=== PATIENT | female | born 1935 | race Caucasian/White ===

== ENCOUNTER 2018-07-17 15:43 | Inpatient (IN) | payer MEDICARE, OTHER ==
[~2018-07-17] VITALS: Ht 162.6 cm; Wt 72.1 kg
[2018-07-17 16:06] LABS: BASO # 0.1 x10^3/uL (0.0-0.2); BASO % 1 % (0-3); EOS # 0.1 x10^3/uL (0.0-0.7); EOS % 1 % (0-3); HEMATOCRIT 32.1 % (36.0-47.0); HEMOGLOBIN 11.1 g/dL (12.0-15.5); LYMPH # 1.2 x10^3/uL (1.0-4.8); LYMPH % 15 % (24-48); MEAN CORPUSCULAR HEMOGLOBIN 34 pg (25-35); MEAN CORPUSCULAR HGB CONC 35 g/dL (31-37); MEAN CORPUSCULAR VOLUME 99 fL (79-100); MONO # 0.5 x10^3/uL (0.0-1.1); MONO % 6 % (0-9); NEUT # 6.2 x10^3uL (1.8-7.7); NEUT % 77 % (31-73); PLATELET COUNT 165 x10^3/uL (140-400); RED BLOOD COUNT 3.26 x10^6/uL (3.50-5.40); RED CELL DISTRIBUTION WIDTH 13.7 % (11.5-14.5); WHITE BLOOD COUNT 8.1 x10^3/uL (4.0-11.0)
--- NOTE | 2018-07-17 16:06 | RAD ---
PORTABLE CHEST 1V History: Shortness of breath Comparison: None. Findings: AP view of the chest is submitted. There has been median sternotomy. There is left electronic cardiac device. There is no pneumothorax. Very small left pleural effusion is difficult to exclude as there is mild blunting of left costophrenic sulcus of uncertain chronicity. Cardiac silhouette is borderline in size. There is mild hazy airspace opacity of the left lateral lung base. Impression: 1. There is mild hazy airspace opacity left lateral lung base and mild blunting of the left costophrenic sulcus of uncertain chronicity, possible mild left base atelectasis or infiltrate, very small left pleural effusion not excluded. Electronically signed by: Toby Lo MD (07/17/2018 4:02 PM) [id number]
--- NOTE | 2018-07-17 16:09 | EKG ---
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
[2018-07-17 16:15] LABS: PROTHROMBIN TIME PATIENT 23.9 SEC (11.7-14.0)
[2018-07-17] MEDS ORDERED: IV NORMAL SALINE 500ML BAG 500 ML IV ONE ×2 (16:15→16:30)
[2018-07-17 16:24] LABS: CALCIUM 8.6 mg/dL (8.5-10.1); CREATININE 1.8 mg/dL (0.6-1.0); GFR 26.9
[2018-07-17 16:28] LABS: ALBUMIN 2.8 g/dL (3.4-5.0); ALBUMIN/GLOBULIN RATIO 0.7 (1.0-1.7); TOTAL BILIRUBIN 0.5 mg/dL (0.2-1.0); TOTAL PROTEIN 6.7 g/dL (6.4-8.2)
[2018-07-17 16:44] LABS: BILIRUBIN,URINE SMALL (NEG); CLARITY,URINE CLEAR; NITRITE,URINE NEGATIVE (NEG); PH,URINE 5.5; PROTEIN,URINE NEGATIVE (NEG-TRACE)
[2018-07-17] MEDS ORDERED: VANCOMYCIN 1.75 GM in IV NORMAL SALINE 500ML BAG 500 ML IV ONE (16:45)
[2018-07-17 17:08] LABS: COLOR,URINE DK YELLOW
[2018-07-17 17:13] LABS: BACTERIA,URINE FEW /HPF (0-FEW); HYALINE CASTS, URINE MANY /HPF; RBC,URINE 0 /HPF (0-2); SQUAMOUS EPITHELIAL CELL,UR MANY /LPF
[2018-07-17] MEDS ORDERED: FURO40TA4 PO (17:30)
[2018-07-17] MEDS ORDERED: POTA10TA17 PO (17:30)
[2018-07-17] MEDS ORDERED: AMIO200T4 PO (17:30)
[2018-07-17] MEDS ORDERED: CETI10TA16 PO (17:30)
[2018-07-17] MEDS ORDERED: VENL37.57 PO (17:30)
[2018-07-17] MEDS ORDERED: CRESTOR20 MG PO (17:30)
[2018-07-17] MEDS ORDERED: LACT1CAP8 PO (17:30)
[2018-07-17] MEDS ORDERED: MULT-55 PO (17:30)
[2018-07-17] MEDS ORDERED: ALEN70TA5 PO (17:30)
[2018-07-17] MEDS ORDERED: CYAN10005 PO (17:30)
[2018-07-17] MEDS ORDERED: CHOL100013 PO (17:30)
[2018-07-17] MEDS ORDERED: FERR325T14 PO (17:30)
[2018-07-17] MEDS ORDERED: CITA40TA5 PO (17:30)
[2018-07-17] MEDS ORDERED: SPIR25TA5 PO (17:30)
[2018-07-17] MEDS ORDERED: RIVA20TA2 PO (17:30)
[2018-07-17] MEDS ORDERED: OMEG-165 PO (17:30)
[2018-07-17] MEDS ORDERED: OMEP40CA5 PO (17:30)
[2018-07-17] MEDS ORDERED: ASPI-630 PO (17:30)
[2018-07-17] MEDS ORDERED: IV RINGERS,LACTATED 1000ML 1,000 ML IV SCH (17:48)
[2018-07-17] MEDS: IV NORMAL SALINE 1000ML BAG 1,000 ML IV SCH ×2 (17:50→18:24)
[2018-07-17] MEDS ORDERED: LACTULOSE 20 GM/30 ML SOLUTION. PO PRN (18:00)
[2018-07-17] MEDS ORDERED: MORPHINE SULFATE 2 MG/ML VIAL. IV PRN (18:00)
[2018-07-17] MEDS ORDERED: BISACODYL 10 MG SUPP.RECT. PR PRN (18:00)
[2018-07-17] MEDS ORDERED: ONDANSETRON PF 4 MG/2 ML VIAL. IV PRN (18:00)
[2018-07-17] MEDS ORDERED: 0.9 % SODIUM CHLORIDE 10 ML DISP.SYRIN. IV PRN (18:00)
[2018-07-17 20:00] VITALS: BP 88/53
[2018-07-17 20:15] VITALS: BP 93/53
[2018-07-17] MEDS: VANCOMYCIN PER PHARMACY MC PRN (20:21)
[2018-07-17 20:30] VITALS: BP 84/42
--- NOTE | 2018-07-17 20:31 | NUR ---
Pharmacy Vancomycin Dosing Note S:Consulted to monitor and dose vancomycin started 07/17/18. O:MARYJANE MENDEZ is a 83 year old F with Sepsis Pneumonia . Height: 5 feet, 4 inches Weight: 68.370124 kg Tracy Body Weight: 54.70 Adjusted Body Weight: 60.02 Dosing Weight: Actual Other Antibiotics: LEVAQUIN 07/17 - LABS: Last BUN: 24 Last Creatinine: 1.8 Creatinine Clearance: 22 mL/min Last WBC: 8.1 Last Platelets: 165 Tmax (past 24 hours): 98.1 Microbiology: 07/17 ZACARIAS CX ORDERED I/O: - Drug Levels: Last level: on at Last dose given 07/17/18 at 1800 Vancomycin Dosing: Loading Dose: 1750 mg x1 Dosing Weight: Actual Target Trough: 15-20 A: Based on: WEIGHT, CRCL~22, P: 1. Initiate Vancomycin 1000 mg IV q48h after 1750 mg loading dose, 2. Follow up Trough level on 07/21/18 at 1800 3. Pharmacy will continue to monitor, follow and adjust therapy as needed. NICO WILLETT RPH, 07/17/182031
[2018-07-17 20:45] VITALS: BP 90/52
--- NOTE | 2018-07-17 21:00 | NUR ---
Patient arrived to ! room 110 from the ED. Report received from HAJA hSook. Upon arrival patient patient with vanco infusing and 2L via NC. Blood and urine cultures, abx and IVFs given in ED. Patient is alert and oriented and answers questions appropriately but poor historian. Daughter at bedside and able to answer admission questions. Denies complaint of pain or soa. Dr. Snyder notified and orders received. Will continue to monitor.
--- NOTE | 2018-07-17 21:30 | PDOC1 ---
History and Physical Date of Admission Date of Admission 07/17/2018 Identification/Chief Complaint Chief Complaint I felt like I was in a fog Problems: (1) Bacterial lobar pneumonia Source Source: Chart review, Patient History of Present Illness History of Present Illness Patient is an 83 year old female with past medical history of CAD status post pacemaker placement. She was in her usual state of health until this morning when apparently she had an episode of lightheadedness and one-time emesis with gastric contents. The patient did not lose consciousness but had a presyncopal episode. Noticed that patient lives at home and recently had a change in her medications she used to take sotalol for rate control of her atrial fibrillation that is chronic and permanent in nature. The patient is currently now on amiodarone and this has been for about a month to 2 months since the change. Of note is that all her cardiological workup and treatment has been done at the [facility]. Records are not available for review. The patient had a CABG done in 2009 subsequently a patient suffered a CVA and also has had peripheral vascular disease with carotid endarterectomy due to plaque. The patient has a having some cough with clear sputum and this morning felt feverish. He denies pleurisy no recent sick contacts or travels outside the area. She is cared for by her family at home. No headaches she does have some congestion and sneezing associated with the cough no odynophagia no abdominal pain no chest pain or palpitations for reported no back pain no urinary symptoms either. The patient was found to have bilateral infiltrates as reported by emergency room physician and we have been requested to admit the patient for further treatment. At the time of my evaluation the patient is able to respond to my questionnaire appropriately she is able to finish sentences and does not seem to have increased work of breathing. She was noted to have hypotension initially and was evaluated by cardiology since EMS in transit thought that the patient may be having a cardiac event given her history. No elevations of her troponins of significance and no ischemic changes on telemetry either all concerns addressed to the best of my abilities. Current Medications Current Medications Current Medications Medications (Trade) Dose Ordered Sig/Saul Start Time Stop Time Status Last Admin Dose Admin Acetaminophen (Tylenol) 650 mg PRN Q6HRS PRN 07/17/18 18:00 Amiodarone HCl (Cordarone) 400 mg DAILY 07/18/18 09:00 Aspirin (Children'S Aspirin) 81 mg DAILY 07/18/18 09:00 Atorvastatin Calcium (Lipitor) 80 mg QHS 07/17/18 21:00 Bisacodyl (Dulcolax Supp) 10 mg PRN DAILY PRN 07/17/18 18:00 Cetirizine HCl (ZyrTEC) 10 mg DAILY 07/18/18 09:00 Citalopram Hydrobromide (CeleXA) 40 mg DAILY 07/18/18 09:00 Cyanocobalamin (Vitamin B-12) 500 mcg DAILY 07/18/18 09:00 Ferrous Sulfate (Feosol) 325 mg BID 07/17/18 21:00 Fish Oil (Fish Oil) 1,000 mg DAILY 07/18/18 09:00 Furosemide (Lasix) 40 mg DAILY 07/18/18 09:00 Info (Anti-Coagulation Monitoring By Pharmacy) 1 each PRN DAILY PRN 07/17/18 20:30 Info (Icu Electrolyte Protocol) 1 ea DAILY 07/18/18 09:00 Lactobacillus Rhamnosus (Culturelle) 2 cap DAILY 07/18/18 09:00 Lactulose (Lactulose) 20 gm PRN Q12HR PRN 07/17/18 18:00 Levofloxacin/ Dextrose 150 ml @ 100 mls/hr Q48H 07/19/18 18:00 07/22/18 17:59 Lorazepam (Ativan) 0.5 mg PRN Q6HRS PRN 07/17/18 18:00 Morphine Sulfate (Morphine Sulfate) 2 mg PRN Q1HR PRN 07/17/18 18:00 Multivitamins (Thera M Plus) 1 tab DAILY 07/18/18 09:00 Non-Formulary Medication (Alendronate Sodium ) 1 tab WEEKLY 07/24/18 09:00 07/24/18 09:00 DC Ondansetron HCl (Zofran) 4 mg PRN Q6HRS PRN 07/17/18 18:00 Oxycodone/ Acetaminophen (Percocet 5/325) 1 tab PRN Q4HRS PRN 07/17/18 18:00 Pantoprazole Sodium (Protonix) 40 mg DAILYAC 07/18/18 07:30 Potassium Citrate (Urocit-K) 10 meq BIDWMEALS 07/17/18 21:00 Ringer's Solution 1,000 ml @ 1,000 mls/hr Q1H 07/17/18 17:48 07/17/18 18:47 DC Rivaroxaban (Xarelto) 15 mg DAILY 07/18/18 09:00 Sodium Chloride (Normal Saline Flush) 3 ml QSHIFT PRN 07/17/18 18:00 Spironolactone (Aldactone) 12.5 mg DAILY 07/18/18 09:00 Vancomycin HCl (Vanco Per Pharmacy) 1 each PRN DAILY PRN 07/17/18 16:30 07/17/18 20:21 1 EACH Vancomycin HCl (Vancomycin Trough Level) 1 each 1X ONCE 07/21/18 18:00 07/21/18 18:01 Vancomycin HCl 1.75 gm/Sodium Chloride 500 ml @ 250 mls/hr 1X ONCE 07/17/18 16:45 07/17/18 18:44 DC 07/17/18 18:29 250 MLS/HR Vancomycin HCl 1 gm/Sodium Chloride 250 ml @ 250 mls/hr Q48H 07/19/18 18:30 Venlafaxine HCl (Effexor Xr) 37.5 mg DAILY 07/18/18 09:00 Vitamin D (Vitamin D3) 3,000 unit DAILY 07/18/18 09:00 Allergies Allergies Allergies Coded Allergies Type Severity Reaction Last Updated Verified Penicillins Allergy Intermediate rash 07/17/18 Yes Sulfa (Sulfonamide Antibiotics) Allergy Intermediate rash and fever 07/17/18 Yes ROS Review of System CONSTITUTIONAL: No fever or chills EYES: No recent changes SKIN: No rash or itching CARDIOVASCULAR: No chest pain, syncope, palpitations, or edema RESPIRATORY: No SOB or cough GASTROINTESTINAL: No nausea, vomiting or abdominal pain NEUROLOGICAL: No headaches or weakness ENDOCRINE: No cold or heat intolerance GENITOURINARY: No urgency or frequency of urination MUSCULOSKELETAL: No back pain or joint pain LYMPHATICS: No enlarged lymph nodes PSYCHIATRIC: No anxiety or depression Physical Exam Physical Exam GEN.: No apparent distress. Alert and oriented. HEENT: Head is normocephalic, atraumatic NECK: Supple. LUNGS: Clear to auscultation. HEART: Irregular Rate and Rhythm, S1, S2 present. No murmurs Peripheral pulses intact ABDOMEN: Soft, nontender. Positive bowel sounds. EXTREMITIES: Without any cyanosis. NEUROLOGIC: Normal speech, normal tone PSYCHIATRIC: Normal affect, normal mood. SKIN: No ulcerations Vitals Vitals Vital Signs Date Time Temp Pulse Resp B/P (MAP) Pulse Ox O2 Delivery O2 Flow Rate FiO2 07/17/18 20:45 76 20 90/52 (65) 100 Nasal Cannula 07/17/18 20:00 97.7 97.7 07/17/18 19:29 2.0 Labs Labs Laboratory Tests Test 07/17/18 15:50 07/17/18 16:32 07/17/18 16:52 07/17/18 19:50 White Blood Count 8.1 x10^3/uL (4.0-11.0) Red Blood Count 3.26 x10^6/uL (3.50-5.40) Hemoglobin 11.1 g/dL (12.0-15.5) Hematocrit 32.1 % (36.0-47.0) Mean Corpuscular Volume 99 fL (79-100) Mean Corpuscular Hemoglobin 34 pg (25-35) Mean Corpuscular Hemoglobin Concent 35 g/dL (31-37) Red Cell Distribution Width 13.7 % (11.5-14.5) Platelet Count 165 x10^3/uL (140-400) Neutrophils (%) (Auto) 77 % (31-73) Lymphocytes (%) (Auto) 15 % (24-48) Monocytes (%) (Auto) 6 % (0-9) Eosinophils (%) (Auto) 1 % (0-3) Basophils (%) (Auto) 1 % (0-3) Neutrophils # (Auto) 6.2 x10^3uL (1.8-7.7) Lymphocytes # (Auto) 1.2 x10^3/uL (1.0-4.8) Monocytes # (Auto) 0.5 x10^3/uL (0.0-1.1) Eosinophils # (Auto) 0.1 x10^3/uL (0.0-0.7) Basophils # (Auto) 0.1 x10^3/uL (0.0-0.2) Prothrombin Time 23.9 SEC (11.7-14.0) Prothromb Time International Ratio 2.2 (0.8-1.1) Sodium Level 139 mmol/L (136-145) Potassium Level 4.0 mmol/L (3.5-5.1) Chloride Level 101 mmol/L (98-107) Carbon Dioxide Level 28 mmol/L (21-32) Anion Gap 10 (6-14) Blood Urea Nitrogen 24 mg/dL (7-20) Creatinine 1.8 mg/dL (0.6-1.0) Estimated GFR (Cockcroft-Gault) 26.9 BUN/Creatinine Ratio 13 (6-20) Glucose Level 163 mg/dL (70-99) Calcium Level 8.6 mg/dL (8.5-10.1) Magnesium Level 2.0 mg/dL (1.8-2.4) Total Bilirubin 0.5 mg/dL (0.2-1.0) Aspartate Amino Transf (AST/SGOT) 20 U/L (15-37) Alanine Aminotransferase (ALT/SGPT) 21 U/L (14-59) Alkaline Phosphatase 60 U/L (46-116) Troponin I Quantitative < 0.017 ng/mL (0.000-0.055) HM-Dfe-U-Type Natriuretic Peptide 465 pg/mL (0-449) Total Protein 6.7 g/dL (6.4-8.2) Albumin 2.8 g/dL (3.4-5.0) Albumin/Globulin Ratio 0.7 (1.0-1.7) Lipase 104 U/L (73-393) Urine Collection Type U cath Urine Color Dk yellow Urine Clarity Clear Urine pH 5.5 Urine Specific [place] 1.020 Urine Protein Negative mg/dL (NEG-TRACE) Urine Glucose (UA) Negative mg/dL (NEG) Urine Ketones (Stick) Trace mg/dL (NEG) Urine Blood Negative (NEG) Urine Nitrite Negative (NEG) Urine Bilirubin Small (NEG) Urine Urobilinogen Dipstick 1.0 mg/dL (0.2 mg/dL) Urine Leukocyte Esterase Small (NEG) Urine RBC 0 /HPF (0-2) Urine WBC 1-4 /HPF (0-4) Urine Squamous Epithelial Cells Many /LPF Urine Transitional Epithelial Cells Occ /LPF Urine Bacteria Few /HPF (0-FEW) Urine Hyaline Casts Many /HPF Urine Mucus Marked /LPF Lactic Acid Level 3.1 mmol/L (0.4-2.0) 1.7 mmol/L (0.4-2.0) Laboratory Tests Test 07/17/18 15:50 07/17/18 16:32 07/17/18 16:52 07/17/18 19:50 White Blood Count 8.1 x10^3/uL (4.0-11.0) Red Blood Count 3.26 x10^6/uL (3.50-5.40) Hemoglobin 11.1 g/dL (12.0-15.5) Hematocrit 32.1 % (36.0-47.0) Mean Corpuscular Volume 99 fL (79-100) Mean Corpuscular Hemoglobin 34 pg (25-35) Mean Corpuscular Hemoglobin Concent 35 g/dL (31-37) Red Cell Distribution Width 13.7 % (11.5-14.5) Platelet Count 165 x10^3/uL (140-400) Neutrophils (%) (Auto) 77 % (31-73) Lymphocytes (%) (Auto) 15 % (24-48) Monocytes (%) (Auto) 6 % (0-9) Eosinophils (%) (Auto) 1 % (0-3) Basophils (%) (Auto) 1 % (0-3) Neutrophils # (Auto) 6.2 x10^3uL (1.8-7.7) Lymphocytes # (Auto) 1.2 x10^3/uL (1.0-4.8) Monocytes # (Auto) 0.5 x10^3/uL (0.0-1.1) Eosinophils # (Auto) 0.1 x10^3/uL (0.0-0.7) Basophils # (Auto) 0.1 x10^3/uL (0.0-0.2) Prothrombin Time 23.9 SEC (11.7-14.0) Prothromb Time International Ratio 2.2 (0.8-1.1) Sodium Level 139 mmol/L (136-145) Potassium Level 4.0 mmol/L (3.5-5.1) Chloride Level 101 mmol/L (98-107) Carbon Dioxide Level 28 mmol/L (21-32) Anion Gap 10 (6-14) Blood Urea Nitrogen 24 mg/dL (7-20) Creatinine 1.8 mg/dL (0.6-1.0) Estimated GFR (Cockcroft-Gault) 26.9 BUN/Creatinine Ratio 13 (6-20) Glucose Level 163 mg/dL (70-99) Calcium Level 8.6 mg/dL (8.5-10.1) Magnesium Level 2.0 mg/dL (1.8-2.4) Total Bilirubin 0.5 mg/dL (0.2-1.0) Aspartate Amino Transf (AST/SGOT) 20 U/L (15-37) Alanine Aminotransferase (ALT/SGPT) 21 U/L (14-59) Alkaline Phosphatase 60 U/L (46-116) Troponin I Quantitative < 0.017 ng/mL (0.000-0.055) MU-Tzw-U-Type Natriuretic Peptide 465 pg/mL (0-449) Total Protein 6.7 g/dL (6.4-8.2) Albumin 2.8 g/dL (3.4-5.0) Albumin/Globulin Ratio 0.7 (1.0-1.7) Lipase 104 U/L (73-393) Urine Collection Type U cath Urine Color Dk yellow Urine Clarity Clear Urine pH 5.5 Urine Specific [place] 1.020 Urine Protein Negative mg/dL (NEG-TRACE) Urine Glucose (UA) Negative mg/dL (NEG) Urine Ketones (Stick) Trace mg/dL (NEG) Urine Blood Negative (NEG) Urine Nitrite Negative (NEG) Urine Bilirubin Small (NEG) Urine Urobilinogen Dipstick 1.0 mg/dL (0.2 mg/dL) Urine Leukocyte Esterase Small (NEG) Urine RBC 0 /HPF (0-2) Urine WBC 1-4 /HPF (0-4) Urine Squamous Epithelial Cells Many /LPF Urine Transitional Epithelial Cells Occ /LPF Urine Bacteria Few /HPF (0-FEW) Urine Hyaline Casts Many /HPF Urine Mucus Marked /LPF Lactic Acid Level 3.1 mmol/L (0.4-2.0) 1.7 mmol/L (0.4-2.0) VTE Prophylaxis Ordered VTE Prophylaxis Devices: Yes VTE Pharmacological Prophylaxi: Yes Assessment/Plan Assessment/Plan *Community acquired bacterial pneumonia *History of recent permanent pacemaker *Chronic atrial fibrillation on chronic anticoagulation *CAD s/p CABG in 2009 currently asymptomatic *CKD stage 3b *Elevated lactic acid resolved Plan: Resume home medications Lactic acid initially elevated has resolved will continue to follow vital signs , maintain MAP above 65 may give fluid challenge if needed continue broad spectrum antibiotics will check legionella and strep antigen reassess in the am NESTOR GRAHAM MD Jul 17, 2018 21:30
--- NOTE | 2018-07-17 21:45 | PHYS DOC ---
Past Medical History Past Medical History: A-Fib, Arrhythmia, CHF, CVA Additional Past Medical Histor: gregorio tachy syndrome, vtach, PAD, syncope, PRATIK with CPAP Past Surgical History: Coronary Bypass Surgery, Hysterectomy, Pacemaker, Other Additional Past Surgical Histo: rt femur fracture repair, LT carotid endarterectomy Alcohol Use: None Drug Use: None Adult General Chief Complaint Chief Complaint: CHEST PAIN HPI HPI Patient is a 83 year old female was brought in by ambulance with a chief complaint of possible STEMI alert. This patient probably was weak earlier today since the morning has not been feeling that well vomited up her medications had a witnessed syncopal episode pressure for the paramedics was 60/30 she was complaining of neck pain on further questioning of the patient this is actually a chronic neck problems she has had severe arthritis for a long time. They did an EKG they were concerned about ST elevation in the inferior leads so given the pressure in the neck pain activated a STEMI alert. Patient did have a pacemaker placed 3 weeks ago for atrial fibrillation she is on blood thinners. She has had no rectal bleeding that she knows of denies chest paiN mild cough no abdominal pain she did not hit her head this is a witnessed syncope she is currently feeling better at this time Review of Systems Review of Systems Constitutional: Denies fever or chills [] Eyes: Denies change in visual acuity, redness, or eye pain [] Musculoskeletal: Denies back pain or joint pain [] Integument: Denies rash or skin lesions [] All other systems were reviewed and found to be within normal limits, except as documented in this note. Current Medications Current Medications Current Medications Medications (Trade) Dose Ordered Sig/Saul Start Time Stop Time Status Last Admin Dose Admin Acetaminophen (Tylenol) 650 mg PRN Q6HRS PRN 07/17/18 18:00 Bisacodyl (Dulcolax Supp) 10 mg PRN DAILY PRN 07/17/18 18:00 Lactulose (Lactulose) 20 gm PRN Q12HR PRN 07/17/18 18:00 Levofloxacin/ Dextrose 150 ml @ 100 mls/hr 1X ONCE 07/17/18 16:30 07/17/18 18:03 DC 07/17/18 17:07 100 MLS/HR Lorazepam (Ativan) 0.5 mg PRN Q6HRS PRN 07/17/18 18:00 Morphine Sulfate (Morphine Sulfate) 2 mg PRN Q1HR PRN 07/17/18 18:00 Ondansetron HCl (Zofran) 4 mg PRN Q6HRS PRN 07/17/18 18:00 Oxycodone/ Acetaminophen (Percocet 5/325) 1 tab PRN Q4HRS PRN 07/17/18 18:00 Ringer's Solution 1,000 ml @ 1,000 mls/hr Q1H 07/17/18 17:48 07/17/18 18:47 DC Sodium Chloride (Normal Saline Flush) 3 ml QSHIFT PRN 07/17/18 18:00 Vancomycin HCl (Vanco Per Pharmacy) 1 each PRN DAILY PRN 07/17/18 16:30 07/17/18 20:21 1 EACH Vancomycin HCl 1.75 gm/Sodium Chloride 500 ml @ 250 mls/hr 1X ONCE 07/17/18 16:45 07/17/18 18:44 DC 07/17/18 18:29 250 MLS/HR Allergies Allergies Allergies Coded Allergies Type Severity Reaction Last Updated Verified Penicillins Allergy Intermediate rash 07/17/18 Yes Sulfa (Sulfonamide Antibiotics) Allergy Intermediate rash and fever 07/17/18 Yes Physical Exam Physical Exam Constitutional: Well developed, well nourished, mild distress, non-toxic appearance. [] HENT: Normocephalic, atraumatic, bilateral external ears normal, oropharynx moist, no oral exudates, nose normal. [] Eyes: PERRLA, EOMI, conjunctiva normal, no discharge. [] Neck: Normal range of motion, no tenderness, supple, no stridor. [] Cardiovascular:Heart rate regular rhythm, no murmur [] Lungs & Thorax: Bilateral breath sounds clear to auscultation []the pacemaker site looks good. Abdomen: Bowel sounds normal, soft, no tenderness, no masses, no pulsatile masses. [] Skin: Warm, dry, no erythema, no rash. [] Back: No tenderness, no CVA tenderness. [] Extremities: No tenderness, no cyanosis, no clubbing, ROM intact, trace edema Neurologic: Alert and oriented X 3, normal motor function, normal sensory function, no focal deficits noted. [] Psychologic: Affect normal, judgement normal, mood normal. [] Current Patient Data Vital Signs Vital Signs Date Time Temp Pulse Resp B/P (MAP) Pulse Ox O2 Delivery O2 Flow Rate FiO2 07/17/18 17:59 64 93/52 (66) 95 Room Air 07/17/18 17:44 23 07/17/18 15:49 98.1 98.1 Lab Values Laboratory Tests Test 07/17/18 15:50 07/17/18 16:32 07/17/18 16:52 White Blood Count 8.1 x10^3/uL (4.0-11.0) Red Blood Count 3.26 x10^6/uL (3.50-5.40) L Hemoglobin 11.1 g/dL (12.0-15.5) L Hematocrit 32.1 % (36.0-47.0) L Mean Corpuscular Volume 99 fL (79-100) Mean Corpuscular Hemoglobin 34 pg (25-35) Mean Corpuscular Hemoglobin Concent 35 g/dL (31-37) Red Cell Distribution Width 13.7 % (11.5-14.5) Platelet Count 165 x10^3/uL (140-400) Neutrophils (%) (Auto) 77 % (31-73) H Lymphocytes (%) (Auto) 15 % (24-48) L Monocytes (%) (Auto) 6 % (0-9) Eosinophils (%) (Auto) 1 % (0-3) Basophils (%) (Auto) 1 % (0-3) Neutrophils # (Auto) 6.2 x10^3uL (1.8-7.7) Lymphocytes # (Auto) 1.2 x10^3/uL (1.0-4.8) Monocytes # (Auto) 0.5 x10^3/uL (0.0-1.1) Eosinophils # (Auto) 0.1 x10^3/uL (0.0-0.7) Basophils # (Auto) 0.1 x10^3/uL (0.0-0.2) Prothrombin Time 23.9 SEC (11.7-14.0) H Prothrombin Time INR 2.2 (0.8-1.1) H Sodium Level 139 mmol/L (136-145) Potassium Level 4.0 mmol/L (3.5-5.1) Chloride Level 101 mmol/L (98-107) Carbon Dioxide Level 28 mmol/L (21-32) Anion Gap 10 (6-14) Blood Urea Nitrogen 24 mg/dL (7-20) H Creatinine 1.8 mg/dL (0.6-1.0) H Estimated GFR (Cockcroft-Gault) 26.9 BUN/Creatinine Ratio 13 (6-20) Glucose Level 163 mg/dL (70-99) H Calcium Level 8.6 mg/dL (8.5-10.1) Magnesium Level 2.0 mg/dL (1.8-2.4) Total Bilirubin 0.5 mg/dL (0.2-1.0) Aspartate Amino Transferase (AST) 20 U/L (15-37) Alanine Aminotransferase (ALT) 21 U/L (14-59) Alkaline Phosphatase 60 U/L (46-116) Troponin I Quantitative < 0.017 ng/mL (0.000-0.055) QI-Xyd-W-Type Natriuretic Peptide 465 pg/mL (0-449) H Total Protein 6.7 g/dL (6.4-8.2) Albumin 2.8 g/dL (3.4-5.0) L Albumin/Globulin Ratio 0.7 (1.0-1.7) L Lipase 104 U/L (73-393) Urine Collection Type U cath Urine Color Dk yellow Urine Clarity Clear Urine pH 5.5 Urine Specific [place] 1.020 Urine Protein Negative mg/dL (NEG-TRACE) Urine Glucose (UA) Negative mg/dL (NEG) Urine Ketones (Stick) Trace mg/dL (NEG) Urine Blood Negative (NEG) Urine Nitrite Negative (NEG) Urine Bilirubin Small (NEG) Urine Urobilinogen Dipstick 1.0 mg/dL (0.2 mg/dL) Urine Leukocyte Esterase Small (NEG) Urine RBC 0 /HPF (0-2) Urine WBC 1-4 /HPF (0-4) Urine Squamous Epithelial Cells Many /LPF Urine Transitional Epithelial Cells Occ /LPF Urine Bacteria Few /HPF (0-FEW) Urine Hyaline Casts Many /HPF Urine Mucus Marked /LPF Lactic Acid Level 3.1 mmol/L (0.4-2.0) H Laboratory Tests 07/17/18 15:50 Laboratory Tests 07/17/18 15:50 EKG EKG EKG shows a normal sinus rhythm there are some ST changes in V2 and V3 no STEMI was seen this was interpreted by me at 1600 and also the broodmare barn groom Dr. Wilkins at the time of arrival to the emergency room within the first 5 minutes. No STEMI[] Radiology/Procedures Radiology/Procedures [] Impressions: mpression: 1. There is mild hazy airspace opacity left lateral lung base and mild blunting of the left costophrenic sulcus of uncertain chronicity, possible mild left base atelectasis or infiltrate, very small left pleural effusion not excluded. Electronically signed by: Aurora Carver MD (07/17/2018 4:02 PM) [id number] DICTATED and SIGNED BY: AURORA CARVER MD DATE: 07/17/18 1601 Course & Med Decision Making Course & Med Decision Making Pertinent Labs and Imaging studies reviewed. (See chart for details) This is an 83 old female with multiple medical problems to include atrial fibrillation status post recent pacemaker placement on anticoagulation who is brought in by embolus after a witnessed syncope had low blood pressure 60s over 30s initially medics EKG did show some borderline ST elevation repeated at stat on arrival in the ST elevation was not present on her EKG our broodmare barn groom Dr. Wilkins was at the bedside and did cancel a STEMI alert Patient is having hypotension of unclear etiology she has no chest pain at all we gave fluid resuscitation the blood pressure 1 up and down but the map was slowly trending upward. Chest x-ray suggestive of pneumonia lab work was noted. The lactic acid was elevated we gave fluid resuscitation asked for the nurse to begin the 30/kg fluid bolus in the emergency room the lactate was repeated at the time of this dictation is down to 1.7. Is very likely that she had some hypotension related to pneumonia we did give antibiotics. Creatinine 1.8 and don't have a baseline at this time. I did discuss with Dr. GRAHAM given the borderline BP we have opted to admit this patient overnight to the intensive care unit. In my opinion the patient at this time appears very well blood pressures responding to fluids I do not think that she needs a central line we did discuss this. []At time of transfer to the ICU the map was 66 this was around 1941. Critical care time was 45 minutes exclusive of procedures. Dragon Disclaimer Dragon Disclaimer This electronic medical record was generated, in whole or in part, using a voice recognition dictation system. Departure Departure Impression: Primary Impression: Bacterial lobar pneumonia Disposition: ADMITTED INPATIENT Admitting Physician: Other Condition: STABLE Referrals: LORNA FLORES (PCP) JANEY POWERS MD Jul 17, 2018 21:45
[2018-07-17 22:00] VITALS: BP 97/50
[2018-07-17] MEDS: FERROUS SULFATE 325 MG TABLET. PO SCH (22:32)
[2018-07-17] MEDS: ATORVASTATIN CALCIUM 40 MG TABLET. PO SCH (22:32)
[2018-07-17] MEDS: ACETAMINOPHEN 325 MG TABLET. PO PRN (22:41)
[2018-07-17] MEDS: POTASSIUM CITRATE 10 MEQ TABLET.ER PO SCH (22:48)
[2018-07-17 23:00] VITALS: BP 88/43
[2018-07-18] VITALS (15 sets, daily range): BP systolic 81–114; BP diastolic 38–89
[2018-07-18 05:27] LABS: BASO % 1 % (0-3); EOS # 0.2 x10^3/uL (0.0-0.7); EOS % 3 % (0-3); HEMOGLOBIN 10.1 g/dL (12.0-15.5); LYMPH # 0.9 x10^3/uL (1.0-4.8); LYMPH % 13 % (24-48); MEAN CORPUSCULAR HEMOGLOBIN 34 pg (25-35); MEAN CORPUSCULAR HGB CONC 35 g/dL (31-37); MEAN CORPUSCULAR VOLUME 99 fL (79-100); MONO # 0.4 x10^3/uL (0.0-1.1); MONO % 5 % (0-9); NEUT # 5.7 x10^3uL (1.8-7.7); NEUT % 79 % (31-73); PLATELET COUNT 119 x10^3/uL (140-400); RED BLOOD COUNT 2.93 x10^6/uL (3.50-5.40); WHITE BLOOD COUNT 7.2 x10^3/uL (4.0-11.0)
[2018-07-18 05:56] LABS: CALCIUM 8.5 mg/dL (8.5-10.1); CREATININE 1.1 mg/dL (0.6-1.0); GFR 47.4; POTASSIUM 3.6 mmol/L (3.5-5.1)
[2018-07-18] MEDS: PANTOPRAZOLE 40 MG TABLET.DR. PO SCH (07:54)
[2018-07-18] MEDS: ANTI-COAG MONITOR BY PHARMACY. MC PRN (08:16)
[2018-07-18] MEDS: SPIRONOLACTONE 25 MG TABLET PO SCH (09:00)
[2018-07-18] MEDS: IV NORMAL SALINE 1000ML BAG 1,000 ML IV SCH ×2 (09:07→09:08)
[2018-07-18] MEDS: FUROSEMIDE 40 MG TABLET. PO SCH (09:08)
--- NOTE | 2018-07-18 09:09 | NUR ---
Held patients daily Lasix and Aldactone. Patient hypotensive throughout the night, borderline hypotensive this am. Will continue to monitor.
[2018-07-18] MEDS: ASPIRIN CHEWABLE 81 MG TABLET. PO SCH (09:22)
[2018-07-18] MEDS: CYANOCOBALAMIN (VITAMIN B-12) 1,000 MCG TABLET. PO SCH (09:23)
[2018-07-18] MEDS: CHOLECALCIFEROL (VITAMIN D3) 1,000 UNIT TABLET PO SCH (09:24)
[2018-07-18] MEDS: AMIODARONE HCL 200 MG TABLET. PO SCH (09:24)
[2018-07-18] MEDS: CETIRIZINE HCL 10 MG TABLET. PO SCH (09:25)
[2018-07-18] MEDS: FERROUS SULFATE 325 MG TABLET. PO SCH ×2 (09:25→20:40)
[2018-07-18] MEDS: LACTOBACILLUS RHAMNOSUS GG 1 CAPSULE. PO SCH (09:25)
[2018-07-18] MEDS: RIVAROXABAN 15 MG TABLET. PO SCH (09:25)
[2018-07-18] MEDS: VENLAFAXINE XR 37.5 MG CAP.ER.24H. PO SCH (09:25)
[2018-07-18] MEDS: MULTIVITAMIN with MINERAL TABLET. PO SCH (09:25)
[2018-07-18] MEDS: CITALOPRAM 20 MG TABLET. PO SCH (09:25)
[2018-07-18] MEDS: OMEGA-3 FATTY ACIDS/FISH OIL 1,000 MG CAPSULE. PO SCH (09:25)
[2018-07-18] MEDS: POTASSIUM CITRATE 10 MEQ TABLET.ER PO SCH ×2 (09:27→18:00)
[2018-07-18] MEDS: ELECTROLYTE (ICU) PROTOCOL. MC SCH (09:27)
[2018-07-18] MEDS: VANCOMYCIN PER PHARMACY MC PRN (10:52)
[2018-07-18] MEDS ORDERED: BENZOCAINE/MENTHOL LOZENGE. PO PRN (12:15)
--- NOTE | 2018-07-18 14:29 | PDOC ---
PROGRESS NOTES Chief Complaint Chief Complaint *Community acquired bacterial pneumonia *History of recent permanent pacemaker *Chronic atrial fibrillation on chronic anticoagulation *CAD s/p CABG in 2010 currently asymptomatic *CKD stage 3b *Elevated lactic acid resolved Plan: continue home medications may move out of the unit given the stable vital signs and improved clinical picture continue broad spectrum antibiotics follow legionella and strep antigen reassess in the am hopefully discharge in the next 24 to 48 hours. History of Present Illness History of Present Illness Patient is much improved compared to yesterday. She is sitting in bed in no apparent distress, her respiratory status is normal but increased work of breathing noted no fever or chills reported off as improved patient hemodynamically stable and able to move out of the intensive care unit Vitals Vitals Vital Signs Date Time Temp Pulse Resp B/P (MAP) Pulse Ox O2 Delivery O2 Flow Rate FiO2 07/18/18 12:00 98.4 91 16 91/55 (67) 97 Room Air 98.4 07/18/18 04:00 2.0 Physical Exam Physical Exam Gen.: well-developed well-nourished in no apparent distress Head: Normal shape atraumatic Eyes: Pupils equal reactive to light and accommodation, normal conjunctivae and lids Ears: Normal shape Nose: Normal shape no trauma Mouth: No exudates of the back of throat no thrush no lesions Neck: Supple no JVD no carotid bruit or lymphadenopathy no thyromegaly Chest: Lungs clear to auscultation with good inspiratory effort no crackles rales or rhonchi Cardiovascular: S1-S2 regular rhythm + murmurs gallops or rubs Abdomen: Bowel sounds present soft nontender no hepatosplenomegaly appreciated sign Extremities: No clubbing no cyanosis no edema peripheral pulses palpated bilaterally Neurological: Alert awake oriented in person time place and situation, cranial nerves II through XII intact, no motor or sensory deficits appreciated Psych: Appropriate mood, cooperative Labs LABS Laboratory Tests Test 07/17/18 15:50 07/17/18 16:32 07/17/18 16:52 07/17/18 19:50 White Blood Count 8.1 x10^3/uL (4.0-11.0) Red Blood Count 3.26 x10^6/uL (3.50-5.40) Hemoglobin 11.1 g/dL (12.0-15.5) Hematocrit 32.1 % (36.0-47.0) Mean Corpuscular Volume 99 fL (79-100) Mean Corpuscular Hemoglobin 34 pg (25-35) Mean Corpuscular Hemoglobin Concent 35 g/dL (31-37) Red Cell Distribution Width 13.7 % (11.5-14.5) Platelet Count 165 x10^3/uL (140-400) Neutrophils (%) (Auto) 77 % (31-73) Lymphocytes (%) (Auto) 15 % (24-48) Monocytes (%) (Auto) 6 % (0-9) Eosinophils (%) (Auto) 1 % (0-3) Basophils (%) (Auto) 1 % (0-3) Neutrophils # (Auto) 6.2 x10^3uL (1.8-7.7) Lymphocytes # (Auto) 1.2 x10^3/uL (1.0-4.8) Monocytes # (Auto) 0.5 x10^3/uL (0.0-1.1) Eosinophils # (Auto) 0.1 x10^3/uL (0.0-0.7) Basophils # (Auto) 0.1 x10^3/uL (0.0-0.2) Prothrombin Time 23.9 SEC (11.7-14.0) Prothromb Time International Ratio 2.2 (0.8-1.1) Sodium Level 139 mmol/L (136-145) Potassium Level 4.0 mmol/L (3.5-5.1) Chloride Level 101 mmol/L (98-107) Carbon Dioxide Level 28 mmol/L (21-32) Anion Gap 10 (6-14) Blood Urea Nitrogen 24 mg/dL (7-20) Creatinine 1.8 mg/dL (0.6-1.0) Estimated GFR (Cockcroft-Gault) 26.9 BUN/Creatinine Ratio 13 (6-20) Glucose Level 163 mg/dL (70-99) Calcium Level 8.6 mg/dL (8.5-10.1) Magnesium Level 2.0 mg/dL (1.8-2.4) Total Bilirubin 0.5 mg/dL (0.2-1.0) Aspartate Amino Transf (AST/SGOT) 20 U/L (15-37) Alanine Aminotransferase (ALT/SGPT) 21 U/L (14-59) Alkaline Phosphatase 60 U/L (46-116) Troponin I Quantitative < 0.017 ng/mL (0.000-0.055) YA-Pah-W-Type Natriuretic Peptide 465 pg/mL (0-449) Total Protein 6.7 g/dL (6.4-8.2) Albumin 2.8 g/dL (3.4-5.0) Albumin/Globulin Ratio 0.7 (1.0-1.7) Lipase 104 U/L (73-393) Urine Collection Type U cath Urine Color Dk yellow Urine Clarity Clear Urine pH 5.5 Urine Specific [place] 1.020 Urine Protein Negative mg/dL (NEG-TRACE) Urine Glucose (UA) Negative mg/dL (NEG) Urine Ketones (Stick) Trace mg/dL (NEG) Urine Blood Negative (NEG) Urine Nitrite Negative (NEG) Urine Bilirubin Small (NEG) Urine Urobilinogen Dipstick 1.0 mg/dL (0.2 mg/dL) Urine Leukocyte Esterase Small (NEG) Urine RBC 0 /HPF (0-2) Urine WBC 1-4 /HPF (0-4) Urine Squamous Epithelial Cells Many /LPF Urine Transitional Epithelial Cells Occ /LPF Urine Bacteria Few /HPF (0-FEW) Urine Hyaline Casts Many /HPF Urine Mucus Marked /LPF Lactic Acid Level 3.1 mmol/L (0.4-2.0) 1.7 mmol/L (0.4-2.0) Test 07/18/18 05:05 White Blood Count 7.2 x10^3/uL (4.0-11.0) Red Blood Count 2.93 x10^6/uL (3.50-5.40) Hemoglobin 10.1 g/dL (12.0-15.5) Hematocrit 29.0 % (36.0-47.0) Mean Corpuscular Volume 99 fL (79-100) Mean Corpuscular Hemoglobin 34 pg (25-35) Mean Corpuscular Hemoglobin Concent 35 g/dL (31-37) Red Cell Distribution Width 14.0 % (11.5-14.5) Platelet Count 119 x10^3/uL (140-400) Neutrophils (%) (Auto) 79 % (31-73) Lymphocytes (%) (Auto) 13 % (24-48) Monocytes (%) (Auto) 5 % (0-9) Eosinophils (%) (Auto) 3 % (0-3) Basophils (%) (Auto) 1 % (0-3) Neutrophils # (Auto) 5.7 x10^3uL (1.8-7.7) Lymphocytes # (Auto) 0.9 x10^3/uL (1.0-4.8) Monocytes # (Auto) 0.4 x10^3/uL (0.0-1.1) Eosinophils # (Auto) 0.2 x10^3/uL (0.0-0.7) Basophils # (Auto) 0.0 x10^3/uL (0.0-0.2) Sodium Level 144 mmol/L (136-145) Potassium Level 3.6 mmol/L (3.5-5.1) Chloride Level 108 mmol/L (98-107) Carbon Dioxide Level 26 mmol/L (21-32) Anion Gap 10 (6-14) Blood Urea Nitrogen 18 mg/dL (7-20) Creatinine 1.1 mg/dL (0.6-1.0) Estimated GFR (Cockcroft-Gault) 47.4 Glucose Level 82 mg/dL (70-99) Calcium Level 8.5 mg/dL (8.5-10.1) Review of Systems Review of Systems Pertinent as per history of present illness otherwise 14 point review of system is negative Comment Review of Relevant I have reviewed the following items alba (where applicable) has been applied. Labs Laboratory Tests Test 07/17/18 15:50 07/17/18 16:32 07/17/18 16:52 07/17/18 19:50 White Blood Count 8.1 x10^3/uL (4.0-11.0) Red Blood Count 3.26 x10^6/uL (3.50-5.40) Hemoglobin 11.1 g/dL (12.0-15.5) Hematocrit 32.1 % (36.0-47.0) Mean Corpuscular Volume 99 fL (79-100) Mean Corpuscular Hemoglobin 34 pg (25-35) Mean Corpuscular Hemoglobin Concent 35 g/dL (31-37) Red Cell Distribution Width 13.7 % (11.5-14.5) Platelet Count 165 x10^3/uL (140-400) Neutrophils (%) (Auto) 77 % (31-73) Lymphocytes (%) (Auto) 15 % (24-48) Monocytes (%) (Auto) 6 % (0-9) Eosinophils (%) (Auto) 1 % (0-3) Basophils (%) (Auto) 1 % (0-3) Neutrophils # (Auto) 6.2 x10^3uL (1.8-7.7) Lymphocytes # (Auto) 1.2 x10^3/uL (1.0-4.8) Monocytes # (Auto) 0.5 x10^3/uL (0.0-1.1) Eosinophils # (Auto) 0.1 x10^3/uL (0.0-0.7) Basophils # (Auto) 0.1 x10^3/uL (0.0-0.2) Prothrombin Time 23.9 SEC (11.7-14.0) Prothromb Time International Ratio 2.2 (0.8-1.1) Sodium Level 139 mmol/L (136-145) Potassium Level 4.0 mmol/L (3.5-5.1) Chloride Level 101 mmol/L (98-107) Carbon Dioxide Level 28 mmol/L (21-32) Anion Gap 10 (6-14) Blood Urea Nitrogen 24 mg/dL (7-20) Creatinine 1.8 mg/dL (0.6-1.0) Estimated GFR (Cockcroft-Gault) 26.9 BUN/Creatinine Ratio 13 (6-20) Glucose Level 163 mg/dL (70-99) Calcium Level 8.6 mg/dL (8.5-10.1) Magnesium Level 2.0 mg/dL (1.8-2.4) Total Bilirubin 0.5 mg/dL (0.2-1.0) Aspartate Amino Transf (AST/SGOT) 20 U/L (15-37) Alanine Aminotransferase (ALT/SGPT) 21 U/L (14-59) Alkaline Phosphatase 60 U/L (46-116) Troponin I Quantitative < 0.017 ng/mL (0.000-0.055) XW-Nxp-Z-Type Natriuretic Peptide 465 pg/mL (0-449) Total Protein 6.7 g/dL (6.4-8.2) Albumin 2.8 g/dL (3.4-5.0) Albumin/Globulin Ratio 0.7 (1.0-1.7) Lipase 104 U/L (73-393) Urine Collection Type U cath Urine Color Dk yellow Urine Clarity Clear Urine pH 5.5 Urine Specific [place] 1.020 Urine Protein Negative mg/dL (NEG-TRACE) Urine Glucose (UA) Negative mg/dL (NEG) Urine Ketones (Stick) Trace mg/dL (NEG) Urine Blood Negative (NEG) Urine Nitrite Negative (NEG) Urine Bilirubin Small (NEG) Urine Urobilinogen Dipstick 1.0 mg/dL (0.2 mg/dL) Urine Leukocyte Esterase Small (NEG) Urine RBC 0 /HPF (0-2) Urine WBC 1-4 /HPF (0-4) Urine Squamous Epithelial Cells Many /LPF Urine Transitional Epithelial Cells Occ /LPF Urine Bacteria Few /HPF (0-FEW) Urine Hyaline Casts Many /HPF Urine Mucus Marked /LPF Lactic Acid Level 3.1 mmol/L (0.4-2.0) 1.7 mmol/L (0.4-2.0) Test 07/18/18 05:05 White Blood Count 7.2 x10^3/uL (4.0-11.0) Red Blood Count 2.93 x10^6/uL (3.50-5.40) Hemoglobin 10.1 g/dL (12.0-15.5) Hematocrit 29.0 % (36.0-47.0) Mean Corpuscular Volume 99 fL (79-100) Mean Corpuscular Hemoglobin 34 pg (25-35) Mean Corpuscular Hemoglobin Concent 35 g/dL (31-37) Red Cell Distribution Width 14.0 % (11.5-14.5) Platelet Count 119 x10^3/uL (140-400) Neutrophils (%) (Auto) 79 % (31-73) Lymphocytes (%) (Auto) 13 % (24-48) Monocytes (%) (Auto) 5 % (0-9) Eosinophils (%) (Auto) 3 % (0-3) Basophils (%) (Auto) 1 % (0-3) Neutrophils # (Auto) 5.7 x10^3uL (1.8-7.7) Lymphocytes # (Auto) 0.9 x10^3/uL (1.0-4.8) Monocytes # (Auto) 0.4 x10^3/uL (0.0-1.1) Eosinophils # (Auto) 0.2 x10^3/uL (0.0-0.7) Basophils # (Auto) 0.0 x10^3/uL (0.0-0.2) Sodium Level 144 mmol/L (136-145) Potassium Level 3.6 mmol/L (3.5-5.1) Chloride Level 108 mmol/L (98-107) Carbon Dioxide Level 26 mmol/L (21-32) Anion Gap 10 (6-14) Blood Urea Nitrogen 18 mg/dL (7-20) Creatinine 1.1 mg/dL (0.6-1.0) Estimated GFR (Cockcroft-Gault) 47.4 Glucose Level 82 mg/dL (70-99) Calcium Level 8.5 mg/dL (8.5-10.1) Laboratory Tests Test 07/17/18 15:50 07/17/18 16:32 07/17/18 16:52 07/17/18 19:50 White Blood Count 8.1 x10^3/uL (4.0-11.0) Red Blood Count 3.26 x10^6/uL (3.50-5.40) Hemoglobin 11.1 g/dL (12.0-15.5) Hematocrit 32.1 % (36.0-47.0) Mean Corpuscular Volume 99 fL (79-100) Mean Corpuscular Hemoglobin 34 pg (25-35) Mean Corpuscular Hemoglobin Concent 35 g/dL (31-37) Red Cell Distribution Width 13.7 % (11.5-14.5) Platelet Count 165 x10^3/uL (140-400) Neutrophils (%) (Auto) 77 % (31-73) Lymphocytes (%) (Auto) 15 % (24-48) Monocytes (%) (Auto) 6 % (0-9) Eosinophils (%) (Auto) 1 % (0-3) Basophils (%) (Auto) 1 % (0-3) Neutrophils # (Auto) 6.2 x10^3uL (1.8-7.7) Lymphocytes # (Auto) 1.2 x10^3/uL (1.0-4.8) Monocytes # (Auto) 0.5 x10^3/uL (0.0-1.1) Eosinophils # (Auto) 0.1 x10^3/uL (0.0-0.7) Basophils # (Auto) 0.1 x10^3/uL (0.0-0.2) Prothrombin Time 23.9 SEC (11.7-14.0) Prothromb Time International Ratio 2.2 (0.8-1.1) Sodium Level 139 mmol/L (136-145) Potassium Level 4.0 mmol/L (3.5-5.1) Chloride Level 101 mmol/L (98-107) Carbon Dioxide Level 28 mmol/L (21-32) Anion Gap 10 (6-14) Blood Urea Nitrogen 24 mg/dL (7-20) Creatinine 1.8 mg/dL (0.6-1.0) Estimated GFR (Cockcroft-Gault) 26.9 BUN/Creatinine Ratio 13 (6-20) Glucose Level 163 mg/dL (70-99) Calcium Level 8.6 mg/dL (8.5-10.1) Magnesium Level 2.0 mg/dL (1.8-2.4) Total Bilirubin 0.5 mg/dL (0.2-1.0) Aspartate Amino Transf (AST/SGOT) 20 U/L (15-37) Alanine Aminotransferase (ALT/SGPT) 21 U/L (14-59) Alkaline Phosphatase 60 U/L (46-116) Troponin I Quantitative < 0.017 ng/mL (0.000-0.055) OU-Jqk-N-Type Natriuretic Peptide 465 pg/mL (0-449) Total Protein 6.7 g/dL (6.4-8.2) Albumin 2.8 g/dL (3.4-5.0) Albumin/Globulin Ratio 0.7 (1.0-1.7) Lipase 104 U/L (73-393) Urine Collection Type U cath Urine Color Dk yellow Urine Clarity Clear Urine pH 5.5 Urine Specific [place] 1.020 Urine Protein Negative mg/dL (NEG-TRACE) Urine Glucose (UA) Negative mg/dL (NEG) Urine Ketones (Stick) Trace mg/dL (NEG) Urine Blood Negative (NEG) Urine Nitrite Negative (NEG) Urine Bilirubin Small (NEG) Urine Urobilinogen Dipstick 1.0 mg/dL (0.2 mg/dL) Urine Leukocyte Esterase Small (NEG) Urine RBC 0 /HPF (0-2) Urine WBC 1-4 /HPF (0-4) Urine Squamous Epithelial Cells Many /LPF Urine Transitional Epithelial Cells Occ /LPF Urine Bacteria Few /HPF (0-FEW) Urine Hyaline Casts Many /HPF Urine Mucus Marked /LPF Lactic Acid Level 3.1 mmol/L (0.4-2.0) 1.7 mmol/L (0.4-2.0) Test 07/18/18 05:05 White Blood Count 7.2 x10^3/uL (4.0-11.0) Red Blood Count 2.93 x10^6/uL (3.50-5.40) Hemoglobin 10.1 g/dL (12.0-15.5) Hematocrit 29.0 % (36.0-47.0) Mean Corpuscular Volume 99 fL (79-100) Mean Corpuscular Hemoglobin 34 pg (25-35) Mean Corpuscular Hemoglobin Concent 35 g/dL (31-37) Red Cell Distribution Width 14.0 % (11.5-14.5) Platelet Count 119 x10^3/uL (140-400) Neutrophils (%) (Auto) 79 % (31-73) Lymphocytes (%) (Auto) 13 % (24-48) Monocytes (%) (Auto) 5 % (0-9) Eosinophils (%) (Auto) 3 % (0-3) Basophils (%) (Auto) 1 % (0-3) Neutrophils # (Auto) 5.7 x10^3uL (1.8-7.7) Lymphocytes # (Auto) 0.9 x10^3/uL (1.0-4.8) Monocytes # (Auto) 0.4 x10^3/uL (0.0-1.1) Eosinophils # (Auto) 0.2 x10^3/uL (0.0-0.7) Basophils # (Auto) 0.0 x10^3/uL (0.0-0.2) Sodium Level 144 mmol/L (136-145) Potassium Level 3.6 mmol/L (3.5-5.1) Chloride Level 108 mmol/L (98-107) Carbon Dioxide Level 26 mmol/L (21-32) Anion Gap 10 (6-14) Blood Urea Nitrogen 18 mg/dL (7-20) Creatinine 1.1 mg/dL (0.6-1.0) Estimated GFR (Cockcroft-Gault) 47.4 Glucose Level 82 mg/dL (70-99) Calcium Level 8.5 mg/dL (8.5-10.1) Medications Current Medications Sodium Chloride 500 ml @ 500 mls/hr 1X ONCE IV Last administered on 07/17/18at 16:11; Start 07/17/18 at 16:15; Stop 07/17/18 at 17:14; Status DC Vancomycin HCl (Vanco Per Pharmacy) 1 each PRN DAILY PRN MC SEE COMMENTS Last administered on 07/18/18at 10:52; Start 07/17/18 at 16:30 Levofloxacin/ Dextrose 150 ml @ 100 mls/hr 1X ONCE IV Last administered on 17:07; Start 07/17/18 at 16:30; Stop 07/17/18 at 18:03; Status DC Sodium Chloride 500 ml @ 500 mls/hr 1X ONCE IV Last administered on 07/17/18 17:02; Start 07/17/18 at 16:30; Stop 07/17/18 at 17:29; Status DC Vancomycin HCl 1.75 gm/Sodium Chloride 500 ml @ 250 mls/hr 1X ONCE IV Last administered on 07/17/18at 18:29; Start 07/17/18 at 16:45; Stop 07/17/18 at 18:44; Status DC Sodium Chloride 1,000 ml @ 1,650 mls/hr Q37M IV Last administered on 07/17/18at 18:24; Start 07/17/18 at 17:45; Stop 07/17/18 at 18:44; Status DC Sodium Chloride 1,000 ml @ 75 mls/hr [id number] IV ; Start 07/17/18 at 17:50; Stop 07/18/18 at 17:49 Levofloxacin/ Dextrose 150 ml @ 100 mls/hr Q48H IV ; Start 07/19/18 at 18:00; Stop 07/22/18 at 17:59 Acetaminophen (Tylenol) 650 mg PRN Q6HRS PRN PO Headaches, Temp > 101.5' Last administered on 07/17/18at 22:41; Start 07/17/18 at 18:00 Lorazepam (Ativan) 0.5 mg PRN Q6HRS PRN IV ANXIETY / AGITATION; Start 07/17/18 at 18:00 Ondansetron HCl (Zofran) 4 mg PRN Q6HRS PRN IV NAUSEA/VOMITING; Start 07/17/18 at 18:00 Info ([facility]cu Electrolyte Protocol) 1 ea DAILY MC ; Start 07/18/18 at 09:00 Sodium Chloride (Normal Saline Flush) 3 ml QSHIFT PRN IV AFTER MEDS AND BLOOD DRAWS; Start 07/17/18 at 18:00 Ringer's Solution 1,000 ml @ 1,000 mls/hr Q1H IV Last administered on at 21:40; Start 07/17/18 at 17:48; Stop 07/17/18 at 18:47; Status DC Oxycodone/ Acetaminophen (Percocet 5/325) 1 tab PRN Q4HRS PRN PO MILD PAIN, 1ST CHOICE; Start 07/17/18 at 18:00 Morphine Sulfate (Morphine Sulfate) 2 mg PRN Q1HR PRN IV PAIN; Start 07/17/18 at 18:00 Lactulose (Lactulose) 20 gm PRN Q12HR PRN PO CONSTIPATION; Start 07/17/18 at 18: 00 Bisacodyl (Dulcolax Supp) 10 mg PRN DAILY PRN MT CONSTIPATION; Start 07/17/18 at 18:00 Amiodarone HCl (Cordarone) 400 mg DAILY PO Last administered on 07/18/18at 09:24 ; Start 07/18/18 at 09:00 Aspirin (Children'S Aspirin) 81 mg DAILY PO Last administered on 07/18/18at 09:22 ; Start 07/18/18 at 09:00 Cetirizine HCl (ZyrTEC) 10 mg DAILY PO Last administered on 07/18/18 09:25; Start 07/18/18 at 09:00 Cyanocobalamin (Vitamin B-12) 500 mcg DAILY PO Last administered on 07/18/18at 09 :23; Start 07/18/18 at 09:00 Ferrous Sulfate (Feosol) 325 mg BID PO Last administered on 07/18/18at 09:25; Start 07/17/18 at 21:00 Furosemide (Lasix) 40 mg DAILY PO ; Start 07/18/18 at 09:00 Potassium Citrate (Urocit-K) 10 meq BIDWMEALS PO Last administered on 07/18/18at 09:27; Start 07/17/18 at 21:00 Non-Formulary Medication (Alendronate Sodium ) 1 tab WEEKLY PO ; Start 07/24/18 at 09:00; Stop 07/24/18 at 09:00; Status DC Vitamin D (Vitamin D3) 3,000 unit DAILY PO Last administered on 07/18/18 09:24 ; Start 07/18/18 at 09:00 Citalopram Hydrobromide (CeleXA) 40 mg DAILY PO Last administered on 07/18/18 09:25; Start 07/18/18 at 09:00 Lactobacillus Rhamnosus (Culturelle) 2 cap DAILY PO Last administered on 09:25; Start 07/18/18 at 09:00 Multivitamins (Thera M Plus) 1 tab DAILY PO Last administered on 07/18/18 09:25 ; Start 07/18/18 at 09:00 Fish Oil (Fish Oil) 1,000 mg DAILY PO Last administered on 07/18/18 09:25; Start 07/18/18 at 09:00 Pantoprazole Sodium (Protonix) 40 mg DAILYAC PO Last administered on 07/18/18at 07:54; Start 07/18/18 at 07:30 Rivaroxaban (Xarelto) 15 mg DAILY PO Last administered on 07/18/18 09:25; Start 07/18/18 at 09:00 Atorvastatin Calcium (Lipitor) 80 mg QHS PO Last administered on 07/17/18at 22:32 ; Start 07/17/18 at 21:00 Spironolactone (Aldactone) 12.5 mg DAILY PO ; Start 07/18/18 at 09:00 Venlafaxine HCl (Effexor Xr) 37.5 mg DAILY PO Last administered on 07/18/18at 09: 25; Start 07/18/18 at 09:00 Vancomycin HCl 1 gm/Sodium Chloride 250 ml @ 250 mls/hr Q48H IV ; Start at 18:30; Stop 07/19/18 at 18:30; Status DC Vancomycin HCl (Vancomycin Trough Level) 1 each 1X ONCE MC ; Start 07/19/18 at 18:00; Stop 07/19/18 at 18:01 Info (Anti-Coagulation Monitoring By Pharmacy) 1 each PRN DAILY PRN MC SEE COMMENTS Last administered on 07/18/18at 08:16; Start 07/17/18 at 20:30 Vancomycin HCl 1 gm/Sodium Chloride 250 ml @ 250 mls/hr Q24H IV ; Start at 18:30 Throat Lozenges (Cepacol Sore Throat Lozenge) 1 liyah PRN Q2HRS PRN PO SORE THROAT Last administered on 07/18/18at 12:15; Start 07/18/18 at 12:15 Active Scripts Active Reported Vitamin D (Cholecalciferol (Vitamin D3)) 1,000 Unit Capsule 3,000 Unit PO DAILY Venlafaxine Hcl Er (Venlafaxine Hcl) 37.5 Mg Cap.er.24h 1 Cap PO DAILY Spironolactone 25 Mg Tablet 0.5 Tab PO DAILY Crestor (Rosuvastatin Calcium) 20 Mg Tablet 1 Tab PO DAILY Xarelto (Rivaroxaban) 20 Mg Tablet 20 Mg PO DAILY Probiotic (Lactobacillus Combo No.11) 1 Each Cap.sprink 2 Each PO DAILY Potassium Citrate 10 Meq Tablet.er 1 Tab PO BID Omeprazole 40 Mg Capsule.dr 1 Cap PO DAILY Hair, Skin & Nails (Multivitamin With Minerals) 1 Each Tablet 1 Each PO DAILY Furosemide 40 Mg Tablet 1 Tab PO DAILY Fish Oil 1,000 mg Softgel ([place]-3S/Dha/Epa/Fish Oil) 1 Each Capsule 1 Each PO DAILY Ferrous Sulfate 325 Mg Tablet 1 Tab PO BID Vitamin B-12 (Cyanocobalamin (Vitamin B-12)) 1,000 Mcg Tablet 500 Mcg PO DAILY Citalopram Hbr (Citalopram Hydrobromide) 40 Mg Tablet 1 Tab PO DAILY Cetirizine Hcl 10 Mg Tablet 1 Tab PO DAILY Aspirin 81 Mg Tab.chew 1 Tab PO DAILY Amiodarone Hcl 200 Mg Tablet 2 Tab PO DAILY Alendronate Sodium 70 Mg Tablet 1 Tab PO WEEKLY Vitals/I & O Vital Sign - Last 24 Hours 07/17/18 07/17/18 07/17/18 07/17/18 15:49 16:01 16:14 16:22 Temp 98.1 98.1 Pulse 60 66 68 60 Resp 16 24 24 22 B/P (MAP) 94/46 (62) 87/44 (58) 74/38 (50) 80/42 (55) Pulse Ox 65 98 98 96 O2 Delivery Room Air Room Air Room Air Room Air 07/17/18 07/17/18 07/17/18 07/17/18 16:29 16:44 16:59 17:14 Pulse 68 40 42 64 Resp 18 16 20 18 B/P (MAP) 87/50 (62) 77/39 (52) 89/49 (62) 90/53 (65) Pulse Ox 99 97 98 97 O2 Delivery Room Air Room Air Room Air Room Air 07/17/18 07/17/18 07/17/18 07/17/18 17:29 17:44 17:59 18:14 Pulse 44 56 64 58 Resp 22 23 B/P (MAP) 78/40 (53) 87/50 (62) 93/52 (66) 82/47 (59) Pulse Ox 98 96 95 93 O2 Delivery Room Air Room Air Room Air Room Air 07/17/18 07/17/18 07/17/18 07/17/18 18:29 18:44 18:59 19:14 Pulse 52 64 66 67 B/P (MAP) 92/53 (66) 78/41 (53) 118/50 (72) 78/46 (57) Pulse Ox 100 100 100 99 O2 Delivery Nasal Cannula Nasal Cannula Nasal Cannula Nasal Cannula O2 Flow Rate 2.0 2.0 2.0 2.0 07/17/18 07/17/18 07/17/18 07/17/18 19:29 20:00 20:15 20:15 Temp 97.7 97.7 Pulse 65 64 68 Resp 24 20 B/P (MAP) 88/48 (61) 88/53 (65) 93/53 (66) Pulse Ox 99 2 100 O2 Delivery Nasal Cannula Nasal Cannula Nasal Cannula Nasal Cannula O2 Flow Rate 2.0 2.0 07/17/18 07/17/18 07/17/18 07/17/18 20:30 20:45 22:00 23:00 Pulse 70 76 76 68 Resp 20 20 14 14 B/P (MAP) 84/42 (56) 90/52 (65) 97/50 (66) 88/43 (58) Pulse Ox 100 100 100 100 O2 Delivery Nasal Cannula Nasal Cannula Nasal Cannula Nasal Cannula 07/17/18 07/18/18 07/18/18 07/18/18 23:59 00:01 01:00 02:00 Pulse 66 64 65 Resp 14 14 14 B/P (MAP) 103/50 (67) 110/49 (69) 98/46 (63) Pulse Ox 100 100 100 O2 Delivery Nasal Cannula Nasal Cannula Nasal Cannula Nasal Cannula O2 Flow Rate 2.0 07/18/18 07/18/18 07/18/18 07/18/18 03:00 04:00 04:00 05:00 Temp 97.7 97.7 Pulse 86 66 68 Resp 14 14 14 B/P (MAP) 92/51 (65) 81/38 (52) 81/40 (54) Pulse Ox 100 95 97 O2 Delivery Nasal Cannula Nasal Cannula Nasal Cannula Nasal Cannula O2 Flow Rate 2.0 07/18/18 07/18/18 07/18/18 07/18/18 06:00 07:00 08:00 08:00 Temp 98.0 98.0 Pulse 66 62 68 Resp 14 14 16 B/P (MAP) 86/42 (57) 96/45 (62) 110/55 (73) Pulse Ox 97 96 99 O2 Delivery Nasal Cannula BiPAP/CPAP Room Air Room Air 07/18/18 07/18/18 07/18/18 07/18/18 09:00 09:24 10:00 12:00 Temp 98.4 98.4 Pulse 70 86 67 91 Resp 16 16 16 B/P (MAP) 111/89 (96) 102/51 104/69 (81) 91/55 (67) Pulse Ox 97 98 97 O2 Delivery Room Air Room Air Room Air Intake and Output 07/17/18 07/17/18 07/18/18 15:01 23:01 07:01 Intake Total 1150 ml 550 ml Output Total 1200 ml Balance 1150 ml -650 ml NESTOR GRAHAM MD Jul 18, 2018 14:29
--- NOTE | 2018-07-18 15:41 | NUR ---
SS following for discharge planning. SS reviewed pt's chart and met with pt's RN. Pt is from home and is currently on room air. SS met with pt to discuss discharge planning. Pt reported that she and her spouse live with her daughter and that she has been receiving services with [facility], ; fax [phone]. Pt reported that she would like to return to home with her daughter and spouse and resume services with [facility].
[2018-07-18] MEDS ORDERED: VANCOMYCIN 1 GM in IV NORMAL SALINE 250ML 250 ML IV SCH (18:30)
[2018-07-18] MEDS: ATORVASTATIN CALCIUM 40 MG TABLET. PO SCH (20:40)
[2018-07-19 03:59] VITALS: BP 114/47
[2018-07-19 05:53] LABS: BASO # 0.1 x10^3/uL (0.0-0.2); BASO % 1 % (0-3); EOS # 0.5 x10^3/uL (0.0-0.7); EOS % 8 % (0-3); HEMATOCRIT 28.6 % (36.0-47.0); HEMOGLOBIN 9.9 g/dL (12.0-15.5); LYMPH # 1.5 x10^3/uL (1.0-4.8); LYMPH % 25 % (24-48); MEAN CORPUSCULAR HEMOGLOBIN 34 pg (25-35); MEAN CORPUSCULAR HGB CONC 35 g/dL (31-37); MEAN CORPUSCULAR VOLUME 99 fL (79-100); MONO # 0.5 x10^3/uL (0.0-1.1); MONO % 8 % (0-9); NEUT # 3.6 x10^3uL (1.8-7.7); NEUT % 59 % (31-73); PLATELET COUNT 125 x10^3/uL (140-400); RED BLOOD COUNT 2.88 x10^6/uL (3.50-5.40); RED CELL DISTRIBUTION WIDTH 13.9 % (11.5-14.5); WHITE BLOOD COUNT 6.1 x10^3/uL (4.0-11.0)
[2018-07-19 07:00] VITALS: BP 116/39
[2018-07-19 07:16] LABS: CALCIUM 8.6 mg/dL (8.5-10.1); CREATININE 1.1 mg/dL (0.6-1.0); GFR 47.4; POTASSIUM 4.4 mmol/L (3.5-5.1)
--- NOTE | 2018-07-19 08:12 | NUR ---
Chart review done and spoke w/ RN. Pt has been receiving services s/p pacemaker placement. RN feels pt would benefit from PT/OT Eval and Treat. Please order if agree. Addendum: 07/19/18 at 0813 by KYLE ROBERTS OT Amended: Links added.
--- NOTE | 2018-07-19 08:26 | PDOC ---
PROGRESS NOTES Chief Complaint Chief Complaint *Community acquired bacterial pneumonia *History of recent permanent pacemaker *Chronic atrial fibrillation on chronic anticoagulation *CAD s/p CABG in 2010 currently asymptomatic *CKD stage 3b *Elevated lactic acid resolved History of Present Illness History of Present Illness Patient is much improved compared to yesterday. She is sitting in bed in no apparent distress, her respiratory status is normal but increased work of breathing noted no fever or chills reported. She would like to get out of bed today. solid BM, urinating ok Plan: continue home medications continue broad spectrum antibiotics follow legionella and strep antigen reassess in the am hopefully discharge in the next 24 to 48 hours. Likely tomorrow Vitals Vitals Vital Signs Date Time Temp Pulse Resp B/P (MAP) Pulse Ox O2 Delivery O2 Flow Rate FiO2 07/19/18 07:00 97.9 68 17 116/39 (64) 95 Room Air 97.9 07/18/18 20:00 2.0 Physical Exam Physical Exam Gen.: well-developed well-nourished in no apparent distress Head: Normal shape atraumatic Eyes: Pupils equal reactive to light and accommodation, normal conjunctivae and lids Ears: Normal shape Nose: Normal shape no trauma Mouth: No exudates of the back of throat no thrush no lesions Neck: Supple no JVD no carotid bruit or lymphadenopathy no thyromegaly Chest: Lungs clear to auscultation with good inspiratory effort no crackles rales or rhonchi Cardiovascular: S1-S2 regular rhythm + murmurs gallops or rubs Abdomen: Bowel sounds present soft nontender no hepatosplenomegaly appreciated sign Extremities: No clubbing no cyanosis no edema peripheral pulses palpated bilaterally Neurological: Alert awake oriented in person time place and situation, cranial nerves II through XII intact, no motor or sensory deficits appreciated Psych: Appropriate mood, cooperative Labs LABS Laboratory Tests Test 07/19/18 04:50 White Blood Count 6.1 x10^3/uL (4.0-11.0) Red Blood Count 2.88 x10^6/uL (3.50-5.40) Hemoglobin 9.9 g/dL (12.0-15.5) Hematocrit 28.6 % (36.0-47.0) Mean Corpuscular Volume 99 fL (79-100) Mean Corpuscular Hemoglobin 34 pg (25-35) Mean Corpuscular Hemoglobin Concent 35 g/dL (31-37) Red Cell Distribution Width 13.9 % (11.5-14.5) Platelet Count 125 x10^3/uL (140-400) Neutrophils (%) (Auto) 59 % (31-73) Lymphocytes (%) (Auto) 25 % (24-48) Monocytes (%) (Auto) 8 % (0-9) Eosinophils (%) (Auto) 8 % (0-3) Basophils (%) (Auto) 1 % (0-3) Neutrophils # (Auto) 3.6 x10^3uL (1.8-7.7) Lymphocytes # (Auto) 1.5 x10^3/uL (1.0-4.8) Monocytes # (Auto) 0.5 x10^3/uL (0.0-1.1) Eosinophils # (Auto) 0.5 x10^3/uL (0.0-0.7) Basophils # (Auto) 0.1 x10^3/uL (0.0-0.2) Sodium Level 142 mmol/L (136-145) Potassium Level 4.4 mmol/L (3.5-5.1) Chloride Level 108 mmol/L (98-107) Carbon Dioxide Level 28 mmol/L (21-32) Anion Gap 6 (6-14) Blood Urea Nitrogen 14 mg/dL (7-20) Creatinine 1.1 mg/dL (0.6-1.0) Estimated GFR (Cockcroft-Gault) 47.4 Glucose Level 85 mg/dL (70-99) Calcium Level 8.6 mg/dL (8.5-10.1) Magnesium Level 2.0 mg/dL (1.8-2.4) Comment Review of Relevant I have reviewed the following items alba (where applicable) has been applied. Labs Laboratory Tests Test 07/17/18 15:50 07/17/18 16:32 07/17/18 16:52 07/17/18 19:50 White Blood Count 8.1 x10^3/uL (4.0-11.0) Red Blood Count 3.26 x10^6/uL (3.50-5.40) Hemoglobin 11.1 g/dL (12.0-15.5) Hematocrit 32.1 % (36.0-47.0) Mean Corpuscular Volume 99 fL (79-100) Mean Corpuscular Hemoglobin 34 pg (25-35) Mean Corpuscular Hemoglobin Concent 35 g/dL (31-37) Red Cell Distribution Width 13.7 % (11.5-14.5) Platelet Count 165 x10^3/uL (140-400) Neutrophils (%) (Auto) 77 % (31-73) Lymphocytes (%) (Auto) 15 % (24-48) Monocytes (%) (Auto) 6 % (0-9) Eosinophils (%) (Auto) 1 % (0-3) Basophils (%) (Auto) 1 % (0-3) Neutrophils # (Auto) 6.2 x10^3uL (1.8-7.7) Lymphocytes # (Auto) 1.2 x10^3/uL (1.0-4.8) Monocytes # (Auto) 0.5 x10^3/uL (0.0-1.1) Eosinophils # (Auto) 0.1 x10^3/uL (0.0-0.7) Basophils # (Auto) 0.1 x10^3/uL (0.0-0.2) Prothrombin Time 23.9 SEC (11.7-14.0) Prothromb Time International Ratio 2.2 (0.8-1.1) Sodium Level 139 mmol/L (136-145) Potassium Level 4.0 mmol/L (3.5-5.1) Chloride Level 101 mmol/L (98-107) Carbon Dioxide Level 28 mmol/L (21-32) Anion Gap 10 (6-14) Blood Urea Nitrogen 24 mg/dL (7-20) Creatinine 1.8 mg/dL (0.6-1.0) Estimated GFR (Cockcroft-Gault) 26.9 BUN/Creatinine Ratio 13 (6-20) Glucose Level 163 mg/dL (70-99) Calcium Level 8.6 mg/dL (8.5-10.1) Magnesium Level 2.0 mg/dL (1.8-2.4) Total Bilirubin 0.5 mg/dL (0.2-1.0) Aspartate Amino Transf (AST/SGOT) 20 U/L (15-37) Alanine Aminotransferase (ALT/SGPT) 21 U/L (14-59) Alkaline Phosphatase 60 U/L (46-116) Troponin I Quantitative < 0.017 ng/mL (0.000-0.055) NR-[id number]-Type Natriuretic Peptide 465 pg/mL (0-449) Total Protein 6.7 g/dL (6.4-8.2) Albumin 2.8 g/dL (3.4-5.0) Albumin/Globulin Ratio 0.7 (1.0-1.7) Lipase 104 U/L (73-393) Urine Collection Type U cath Urine Color Dk yellow Urine Clarity Clear Urine pH 5.5 Urine Specific [place] 1.020 Urine Protein Negative mg/dL (NEG-TRACE) Urine Glucose (UA) Negative mg/dL (NEG) Urine Ketones (Stick) Trace mg/dL (NEG) Urine Blood Negative (NEG) Urine Nitrite Negative (NEG) Urine Bilirubin Small (NEG) Urine Urobilinogen Dipstick 1.0 mg/dL (0.2 mg/dL) Urine Leukocyte Esterase Small (NEG) Urine RBC 0 /HPF (0-2) Urine WBC 1-4 /HPF (0-4) Urine Squamous Epithelial Cells Many /LPF Urine Transitional Epithelial Cells Occ /LPF Urine Bacteria Few /HPF (0-FEW) Urine Hyaline Casts Many /HPF Urine Mucus Marked /LPF Lactic Acid Level 3.1 mmol/L (0.4-2.0) 1.7 mmol/L (0.4-2.0) Test 07/17/18 20:15 07/18/18 05:05 07/19/18 04:50 Nasal Screen MRSA (PCR) Negative (Negative) White Blood Count 7.2 x10^3/uL (4.0-11.0) 6.1 x10^3/uL (4.0-11.0) Red Blood Count 2.93 x10^6/uL (3.50-5.40) 2.88 x10^6/uL (3.50-5.40) Hemoglobin 10.1 g/dL (12.0-15.5) 9.9 g/dL (12.0-15.5) Hematocrit 29.0 % (36.0-47.0) 28.6 % (36.0-47.0) Mean Corpuscular Volume 99 fL (79-100) 99 fL (79-100) Mean Corpuscular Hemoglobin 34 pg (25-35) 34 pg (25-35) Mean Corpuscular Hemoglobin Concent 35 g/dL (31-37) 35 g/dL (31-37) Red Cell Distribution Width 14.0 % (11.5-14.5) 13.9 % (11.5-14.5) Platelet Count 119 x10^3/uL (140-400) 125 x10^3/uL (140-400) Neutrophils (%) (Auto) 79 % (31-73) 59 % (31-73) Lymphocytes (%) (Auto) 13 % (24-48) 25 % (24-48) Monocytes (%) (Auto) 5 % (0-9) 8 % (0-9) Eosinophils (%) (Auto) 3 % (0-3) 8 % (0-3) Basophils (%) (Auto) 1 % (0-3) 1 % (0-3) Neutrophils # (Auto) 5.7 x10^3uL (1.8-7.7) 3.6 x10^3uL (1.8-7.7) Lymphocytes # (Auto) 0.9 x10^3/uL (1.0-4.8) 1.5 x10^3/uL (1.0-4.8) Monocytes # (Auto) 0.4 x10^3/uL (0.0-1.1) 0.5 x10^3/uL (0.0-1.1) Eosinophils # (Auto) 0.2 x10^3/uL (0.0-0.7) 0.5 x10^3/uL (0.0-0.7) Basophils # (Auto) 0.0 x10^3/uL (0.0-0.2) 0.1 x10^3/uL (0.0-0.2) Sodium Level 144 mmol/L (136-145) 142 mmol/L (136-145) Potassium Level 3.6 mmol/L (3.5-5.1) 4.4 mmol/L (3.5-5.1) Chloride Level 108 mmol/L (98-107) 108 mmol/L (98-107) Carbon Dioxide Level 26 mmol/L (21-32) 28 mmol/L (21-32) Anion Gap 10 (6-14) 6 (6-14) Blood Urea Nitrogen 18 mg/dL (7-20) 14 mg/dL (7-20) Creatinine 1.1 mg/dL (0.6-1.0) 1.1 mg/dL (0.6-1.0) Estimated GFR (Cockcroft-Gault) 47.4 47.4 Glucose Level 82 mg/dL (70-99) 85 mg/dL (70-99) Calcium Level 8.5 mg/dL (8.5-10.1) 8.6 mg/dL (8.5-10.1) Magnesium Level 2.0 mg/dL (1.8-2.4) Laboratory Tests Test 07/19/18 04:50 White Blood Count 6.1 x10^3/uL (4.0-11.0) Red Blood Count 2.88 x10^6/uL (3.50-5.40) Hemoglobin 9.9 g/dL (12.0-15.5) Hematocrit 28.6 % (36.0-47.0) Mean Corpuscular Volume 99 fL (79-100) Mean Corpuscular Hemoglobin 34 pg (25-35) Mean Corpuscular Hemoglobin Concent 35 g/dL (31-37) Red Cell Distribution Width 13.9 % (11.5-14.5) Platelet Count 125 x10^3/uL (140-400) Neutrophils (%) (Auto) 59 % (31-73) Lymphocytes (%) (Auto) 25 % (24-48) Monocytes (%) (Auto) 8 % (0-9) Eosinophils (%) (Auto) 8 % (0-3) Basophils (%) (Auto) 1 % (0-3) Neutrophils # (Auto) 3.6 x10^3uL (1.8-7.7) Lymphocytes # (Auto) 1.5 x10^3/uL (1.0-4.8) Monocytes # (Auto) 0.5 x10^3/uL (0.0-1.1) Eosinophils # (Auto) 0.5 x10^3/uL (0.0-0.7) Basophils # (Auto) 0.1 x10^3/uL (0.0-0.2) Sodium Level 142 mmol/L (136-145) Potassium Level 4.4 mmol/L (3.5-5.1) Chloride Level 108 mmol/L (98-107) Carbon Dioxide Level 28 mmol/L (21-32) Anion Gap 6 (6-14) Blood Urea Nitrogen 14 mg/dL (7-20) Creatinine 1.1 mg/dL (0.6-1.0) Estimated GFR (Cockcroft-Gault) 47.4 Glucose Level 85 mg/dL (70-99) Calcium Level 8.6 mg/dL (8.5-10.1) Magnesium Level 2.0 mg/dL (1.8-2.4) Microbiology 07/17/18 Blood Culture - Preliminary, Resulted NO GROWTH AFTER 1 DAY Medications Current Medications Sodium Chloride 500 ml @ 500 mls/hr 1X ONCE IV Last administered on 07/17/18at 16:11; Start 07/17/18 at 16:15; Stop 07/17/18 at 17:14; Status DC Vancomycin HCl (Vanco Per Pharmacy) 1 each PRN DAILY PRN MC SEE COMMENTS Last administered on 07/18/18at 10:52; Start 07/17/18 at 16:30 Levofloxacin/ Dextrose 150 ml @ 100 mls/hr 1X ONCE IV Last administered on 07/17/18at 17:07; Start 07/17/18 at 16:30; Stop 07/17/18 at 18:03; Status DC Sodium Chloride 500 ml @ 500 mls/hr 1X ONCE IV Last administered on 07/17/18at 17:02; Start 07/17/18 at 16:30; Stop 07/17/18 at 17:29; Status DC Vancomycin HCl 1.75 gm/Sodium Chloride 500 ml @ 250 mls/hr 1X ONCE IV Last administered on 07/17/18at 18:29; Start 07/17/18 at 16:45; Stop 07/17/18 at 18:44; Status DC Sodium Chloride 1,000 ml @ 1,650 mls/hr Q37M IV Last administered on 07/17/18at 18:24; Start 07/17/18 at 17:45; Stop 07/17/18 at 18:44; Status DC Sodium Chloride 1,000 ml @ 75 mls/hr [id number] IV ; Start 07/17/18 at 17:50; Stop 07/18/18 at 17:49; Status DC Levofloxacin/ Dextrose 150 ml @ 100 mls/hr Q48H IV ; Start 07/19/18 at 18:00; Stop 07/22/18 at 17:59 Acetaminophen (Tylenol) 650 mg PRN Q6HRS PRN PO Headaches, Temp > 101.5' Last administered on 07/17/18at 22:41; Start 07/17/18 at 18:00 Lorazepam (Ativan) 0.5 mg PRN Q6HRS PRN IV ANXIETY / AGITATION; Start 07/17/18 at 18:00 Ondansetron HCl (Zofran) 4 mg PRN Q6HRS PRN IV NAUSEA/VOMITING; Start 07/17/18 at 18:00 Info ([facility] Electrolyte Protocol) 1 ea DAILY MC ; Start 07/18/18 at 09:00 Sodium Chloride (Normal Saline Flush) 3 ml QSHIFT PRN IV AFTER MEDS AND BLOOD DRAWS; Start 07/17/18 at 18:00 Ringer's Solution 1,000 ml @ 1,000 mls/hr Q1H IV Last administered on at 21:40; Start 07/17/18 at 17:48; Stop 07/17/18 at 18:47; Status DC Oxycodone/ Acetaminophen (Percocet 5/325) 1 tab PRN Q4HRS PRN PO MILD PAIN, 1ST CHOICE; Start 07/17/18 at 18:00 Morphine Sulfate (Morphine Sulfate) 2 mg PRN Q1HR PRN IV PAIN; Start 07/17/18 at 18:00 Lactulose (Lactulose) 20 gm PRN Q12HR PRN PO CONSTIPATION; Start 07/17/18 at 18: 00 Bisacodyl (Dulcolax Supp) 10 mg PRN DAILY PRN MI CONSTIPATION; Start 07/17/18 at 18:00 Amiodarone HCl (Cordarone) 400 mg DAILY PO Last administered on 07/18/18at 09:24 ; Start 07/18/18 at 09:00 Aspirin (Children'S Aspirin) 81 mg DAILY PO Last administered on 07/18/18at 09:22 ; Start 07/18/18 at 09:00 Cetirizine HCl (ZyrTEC) 10 mg DAILY PO Last administered on 07/18/18at 09:25; Start 07/18/18 at 09:00 Cyanocobalamin (Vitamin B-12) 500 mcg DAILY PO Last administered on 07/18/18 09 :23; Start 07/18/18 at 09:00 Ferrous Sulfate (Feosol) 325 mg BID PO Last administered on 07/18/18at 20:40; Start 07/17/18 at 21:00 Furosemide (Lasix) 40 mg DAILY PO ; Start 07/18/18 at 09:00 Potassium Citrate (Urocit-K) 10 meq BIDWMEALS PO Last administered on 07/18/18at 18:00; Start 07/17/18 at 21:00 Non-Formulary Medication (Alendronate Sodium ) 1 tab WEEKLY PO ; Start 07/24/18 at 09:00; Stop 07/24/18 at 09:00; Status DC Vitamin D (Vitamin D3) 3,000 unit DAILY PO Last administered on 07/18/18 09:24 ; Start 07/18/18 at 09:00 Citalopram Hydrobromide (CeleXA) 40 mg DAILY PO Last administered on 07/18/18 09:25; Start 07/18/18 at 09:00 Lactobacillus Rhamnosus (Culturelle) 2 cap DAILY PO Last administered on 09:25; Start 07/18/18 at 09:00 Multivitamins (Thera M Plus) 1 tab DAILY PO Last administered on 07/18/18 09:25 ; Start 07/18/18 at 09:00 Fish Oil (Fish Oil) 1,000 mg DAILY PO Last administered on 07/18/18 09:25; Start 07/18/18 at 09:00 Pantoprazole Sodium (Protonix) 40 mg DAILYAC PO Last administered on 07/18/18 07:54; Start 07/18/18 at 07:30 Rivaroxaban (Xarelto) 15 mg DAILY PO Last administered on 07/18/18 09:25; Start 07/18/18 at 09:00 Atorvastatin Calcium (Lipitor) 80 mg QHS PO Last administered on 07/18/18 20:40 ; Start 07/17/18 at 21:00 Spironolactone (Aldactone) 12.5 mg DAILY PO ; Start 07/18/18 at 09:00 Venlafaxine HCl (Effexor Xr) 37.5 mg DAILY PO Last administered on 07/18/18at 09: 25; Start 07/18/18 at 09:00 Vancomycin HCl 1 gm/Sodium Chloride 250 ml @ 250 mls/hr Q48H IV ; Start at 18:30; Stop 07/19/18 at 18:30; Status DC Vancomycin HCl (Vancomycin Trough Level) 1 each 1X ONCE MC ; Start 07/19/18 at 18:00; Stop 07/19/18 at 18:01 Info (Anti-Coagulation Monitoring By Pharmacy) 1 each PRN DAILY PRN MC SEE COMMENTS Last administered on 07/18/18at 08:16; Start 07/17/18 at 20:30 Vancomycin HCl 1 gm/Sodium Chloride 250 ml @ 250 mls/hr Q24H IV Last administered on 07/18/18at 18:00; Start 07/18/18 at 18:30 Throat Lozenges (Cepacol Sore Throat Lozenge) 1 liyah PRN Q2HRS PRN PO SORE THROAT Last administered on 07/18/18at 12:15; Start 07/18/18 at 12:15 Active Scripts Active Reported Vitamin D (Cholecalciferol (Vitamin D3)) 1,000 Unit Capsule 3,000 Unit PO DAILY Venlafaxine Hcl Er (Venlafaxine Hcl) 37.5 Mg Cap.er.24h 1 Cap PO DAILY Spironolactone 25 Mg Tablet 0.5 Tab PO DAILY Crestor (Rosuvastatin Calcium) 20 Mg Tablet 1 Tab PO DAILY Xarelto (Rivaroxaban) 20 Mg Tablet 20 Mg PO DAILY Probiotic (Lactobacillus Combo No.11) 1 Each Cap.sprink 2 Each PO DAILY Potassium Citrate 10 Meq Tablet.er 1 Tab PO BID Omeprazole 40 Mg Capsule.dr 1 Cap PO DAILY Hair, Skin & Nails (Multivitamin With Minerals) 1 Each Tablet 1 Each PO DAILY Furosemide 40 Mg Tablet 1 Tab PO DAILY Fish Oil 1,000 mg Softgel ([place]-3S/Dha/Epa/Fish Oil) 1 Each Capsule 1 Each PO DAILY Ferrous Sulfate 325 Mg Tablet 1 Tab PO BID Vitamin B-12 (Cyanocobalamin (Vitamin B-12)) 1,000 Mcg Tablet 500 Mcg PO DAILY Citalopram Hbr (Citalopram Hydrobromide) 40 Mg Tablet 1 Tab PO DAILY Cetirizine Hcl 10 Mg Tablet 1 Tab PO DAILY Aspirin 81 Mg Tab.chew 1 Tab PO DAILY Amiodarone Hcl 200 Mg Tablet 2 Tab PO DAILY Alendronate Sodium 70 Mg Tablet 1 Tab PO WEEKLY Vitals/I & O Vital Sign - Last 24 Hours 07/18/18 07/18/18 07/18/18 07/18/18 09:00 09:24 10:00 12:00 Temp 98.4 98.4 Pulse 70 86 67 91 Resp 16 16 16 B/P (MAP) 111/89 (96) 102/51 104/69 (81) 91/55 (67) Pulse Ox 97 98 97 O2 Delivery Room Air Room Air Room Air 07/18/18 07/18/18 07/18/18 07/18/18 15:56 19:55 20:00 23:12 Temp 98.0 98.0 98.1 98.0 98.0 98.1 Pulse 82 65 81 Resp 16 16 18 B/P (MAP) 99/45 (63) 91/38 (55) 114/50 (71) Pulse Ox 96 96 97 O2 Delivery Room Air Room Air Room Air Room Air O2 Flow Rate 2.0 07/19/18 07/19/18 03:59 07:00 Temp 97.9 97.9 Pulse 71 68 Resp 18 17 B/P (MAP) 114/47 (69) 116/39 (64) Pulse Ox 95 95 O2 Delivery BiPAP/CPAP Room Air Intake and Output 07/18/18 07/18/18 07/19/18 15:01 23:01 07:01 Intake Total 3290 ml 240 ml 100 ml Output Total 750 ml 0 ml 900 ml Balance 2540 ml 240 ml -800 ml IRMA MALONE MD Jul 19, 2018 08:26
[2018-07-19] MEDS: ELECTROLYTE (ICU) PROTOCOL. MC SCH (09:00)
[2018-07-19] MEDS: CITALOPRAM 20 MG TABLET. PO SCH (09:02)
[2018-07-19] MEDS: CHOLECALCIFEROL (VITAMIN D3) 1,000 UNIT TABLET PO SCH (09:03)
[2018-07-19] MEDS: CYANOCOBALAMIN (VITAMIN B-12) 1,000 MCG TABLET. PO SCH (09:03)
[2018-07-19] MEDS: POTASSIUM CITRATE 10 MEQ TABLET.ER PO SCH ×2 (09:03→17:52)
[2018-07-19] MEDS: PANTOPRAZOLE 40 MG TABLET.DR. PO SCH (09:04)
[2018-07-19] MEDS: RIVAROXABAN 15 MG TABLET. PO SCH (09:04)
[2018-07-19] MEDS: FERROUS SULFATE 325 MG TABLET. PO SCH ×2 (09:04→20:46)
[2018-07-19] MEDS: ASPIRIN CHEWABLE 81 MG TABLET. PO SCH (09:04)
[2018-07-19] MEDS: VENLAFAXINE XR 37.5 MG CAP.ER.24H. PO SCH (09:04)
[2018-07-19] MEDS: CETIRIZINE HCL 10 MG TABLET. PO SCH (09:04)
[2018-07-19] MEDS: SPIRONOLACTONE 25 MG TABLET PO SCH (09:05)
[2018-07-19] MEDS: AMIODARONE HCL 200 MG TABLET. PO SCH (09:05)
[2018-07-19] MEDS: OMEGA-3 FATTY ACIDS/FISH OIL 1,000 MG CAPSULE. PO SCH (09:05)
[2018-07-19] MEDS: MULTIVITAMIN with MINERAL TABLET. PO SCH (09:05)
[2018-07-19] MEDS: LACTOBACILLUS RHAMNOSUS GG 1 CAPSULE. PO SCH (09:06)
[2018-07-19] MEDS: FUROSEMIDE 40 MG TABLET. PO SCH (09:10)
[2018-07-19 10:40] VITALS: BP 105/46
[2018-07-19] MEDS: ANTI-COAG MONITOR BY PHARMACY. MC PRN (13:58)
[2018-07-19] MEDS: ACETAMINOPHEN 325 MG TABLET. PO PRN (14:10)
[2018-07-19 15:45] VITALS: BP 124/49
--- NOTE | 2018-07-19 15:58 | NUR ---
SW following pt. PT is pending and OT recommends SNU. SW will await for PT evaluation and speak with pt regarding SNU options. SW will continue to follow.
[2018-07-19] MEDS ORDERED: VANCOMYCIN 1 GM in IV NORMAL SALINE 250ML 250 ML IV SCH (18:30)
[2018-07-19 20:00] VITALS: BP 94/44
[2018-07-19] MEDS: oxyCODONE/APAP 5/325 1 TAB TABLET PO PRN (20:46)
[2018-07-19] MEDS: ATORVASTATIN CALCIUM 40 MG TABLET. PO SCH (20:46)
[2018-07-19 23:59] VITALS: BP 133/55
[2018-07-20] MEDS: oxyCODONE/APAP 5/325 1 TAB TABLET PO PRN (00:33)
[2018-07-20 02:46] VITALS: BP 134/54
[2018-07-20 07:05] VITALS: BP 128/56
[2018-07-20] MEDS: CYANOCOBALAMIN (VITAMIN B-12) 1,000 MCG TABLET. PO SCH (09:56)
[2018-07-20] MEDS: FUROSEMIDE 40 MG TABLET. PO SCH (09:57)
[2018-07-20] MEDS: FERROUS SULFATE 325 MG TABLET. PO SCH (09:58)
[2018-07-20] MEDS: AMIODARONE HCL 200 MG TABLET. PO SCH (09:58)
[2018-07-20] MEDS: OMEGA-3 FATTY ACIDS/FISH OIL 1,000 MG CAPSULE. PO SCH (09:58)
[2018-07-20] MEDS: PANTOPRAZOLE 40 MG TABLET.DR. PO SCH (09:58)
[2018-07-20] MEDS: VENLAFAXINE XR 37.5 MG CAP.ER.24H. PO SCH (09:58)
[2018-07-20] MEDS: CETIRIZINE HCL 10 MG TABLET. PO SCH (09:58)
[2018-07-20] MEDS: CITALOPRAM 20 MG TABLET. PO SCH (09:58)
[2018-07-20] MEDS: ASPIRIN CHEWABLE 81 MG TABLET. PO SCH (09:58)
[2018-07-20] MEDS: MULTIVITAMIN with MINERAL TABLET. PO SCH (09:58)
[2018-07-20] MEDS: POTASSIUM CITRATE 10 MEQ TABLET.ER PO SCH (09:59)
[2018-07-20] MEDS: RIVAROXABAN 15 MG TABLET. PO SCH (09:59)
[2018-07-20] MEDS: CHOLECALCIFEROL (VITAMIN D3) 1,000 UNIT TABLET PO SCH (09:59)
[2018-07-20] MEDS: SPIRONOLACTONE 25 MG TABLET PO SCH (09:59)
[2018-07-20] MEDS: LACTOBACILLUS RHAMNOSUS GG 1 CAPSULE. PO SCH (10:00)
[2018-07-20 10:30] VITALS: BP 122/43
--- NOTE | 2018-07-20 10:40 | PDOC ---
PROGRESS NOTES Chief Complaint Chief Complaint *Community acquired bacterial pneumonia *History of recent permanent pacemaker *Chronic atrial fibrillation on chronic anticoagulation *CAD s/p CABG in 2010 currently asymptomatic *CKD stage 3b *Elevated lactic acid resolved History of Present Illness History of Present Illness Patient is much improved compared to yesterday. She is sitting in bed in no apparent distress, her respiratory status is normal but increased work of breathing noted no fever or chills reported. She would like to get out of bed today. solid BM, urinating ok. Has some lateral right knee pain Plan: continue home medications d/c on oral antibiotics follow legionella and strep antigen reassess in the am hopefully discharge today Vitals Vitals Vital Signs Date Time Temp Pulse Resp B/P (MAP) Pulse Ox O2 Delivery O2 Flow Rate FiO2 07/20/18 10:30 97.8 79 18 122/43 (69) 94 Room Air 97.8 07/20/18 02:46 2.0 Physical Exam Physical Exam Gen.: well-developed well-nourished in no apparent distress Head: Normal shape atraumatic Eyes: Pupils equal reactive to light and accommodation, normal conjunctivae and lids Ears: Normal shape Nose: Normal shape no trauma Mouth: No exudates of the back of throat no thrush no lesions Neck: Supple no JVD no carotid bruit or lymphadenopathy no thyromegaly Chest: Lungs clear to auscultation with good inspiratory effort no crackles rales or rhonchi Cardiovascular: S1-S2 regular rhythm + murmurs gallops or rubs Abdomen: Bowel sounds present soft nontender no hepatosplenomegaly appreciated sign Extremities: No clubbing no cyanosis no edema peripheral pulses palpated bilaterally Neurological: Alert awake oriented in person time place and situation, cranial nerves II through XII intact, no motor or sensory deficits appreciated Psych: Appropriate mood, cooperative Labs LABS Laboratory Tests Test 07/20/18 07:50 Creatinine 1.0 mg/dL (0.6-1.0) Estimated GFR (Cockcroft-Gault) 53.0 Comment Review of Relevant I have reviewed the following items alba (where applicable) has been applied. Labs Laboratory Tests Test 07/19/18 04:50 07/20/18 07:50 White Blood Count 6.1 x10^3/uL (4.0-11.0) Red Blood Count 2.88 x10^6/uL (3.50-5.40) Hemoglobin 9.9 g/dL (12.0-15.5) Hematocrit 28.6 % (36.0-47.0) Mean Corpuscular Volume 99 fL (79-100) Mean Corpuscular Hemoglobin 34 pg (25-35) Mean Corpuscular Hemoglobin Concent 35 g/dL (31-37) Red Cell Distribution Width 13.9 % (11.5-14.5) Platelet Count 125 x10^3/uL (140-400) Neutrophils (%) (Auto) 59 % (31-73) Lymphocytes (%) (Auto) 25 % (24-48) Monocytes (%) (Auto) 8 % (0-9) Eosinophils (%) (Auto) 8 % (0-3) Basophils (%) (Auto) 1 % (0-3) Neutrophils # (Auto) 3.6 x10^3uL (1.8-7.7) Lymphocytes # (Auto) 1.5 x10^3/uL (1.0-4.8) Monocytes # (Auto) 0.5 x10^3/uL (0.0-1.1) Eosinophils # (Auto) 0.5 x10^3/uL (0.0-0.7) Basophils # (Auto) 0.1 x10^3/uL (0.0-0.2) Sodium Level 142 mmol/L (136-145) Potassium Level 4.4 mmol/L (3.5-5.1) Chloride Level 108 mmol/L (98-107) Carbon Dioxide Level 28 mmol/L (21-32) Anion Gap 6 (6-14) Blood Urea Nitrogen 14 mg/dL (7-20) Creatinine 1.1 mg/dL (0.6-1.0) 1.0 mg/dL (0.6-1.0) Estimated GFR (Cockcroft-Gault) 47.4 53.0 Glucose Level 85 mg/dL (70-99) Calcium Level 8.6 mg/dL (8.5-10.1) Magnesium Level 2.0 mg/dL (1.8-2.4) Laboratory Tests Test 07/20/18 07:50 Creatinine 1.0 mg/dL (0.6-1.0) Estimated GFR (Cockcroft-Gault) 53.0 Microbiology 07/17/18 Blood Culture - Preliminary, Resulted NO GROWTH AFTER 2 DAYS 07/17/18 Urine Culture - Final, Complete 07/17/18 Urine Culture Result 1 (MARIAA) - Final, Complete Medications Current Medications Sodium Chloride 500 ml @ 500 mls/hr 1X ONCE IV Last administered on 07/17/18 16:11; Start 07/17/18 at 16:15; Stop 07/17/18 at 17:14; Status DC Vancomycin HCl (Vanco Per Pharmacy) 1 each PRN DAILY PRN MC SEE COMMENTS Last administered on 07/18/18at 10:52; Start 07/17/18 at 16:30; Stop 07/19/18 at 13:54; Status DC Levofloxacin/ Dextrose 150 ml @ 100 mls/hr 1X ONCE IV Last administered on 17:07; Start 07/17/18 at 16:30; Stop 07/17/18 at 18:03; Status DC Sodium Chloride 500 ml @ 500 mls/hr 1X ONCE IV Last administered on 07/17/18at 17:02; Start 07/17/18 at 16:30; Stop 07/17/18 at 17:29; Status DC Vancomycin HCl 1.75 gm/Sodium Chloride 500 ml @ 250 mls/hr 1X ONCE IV Last administered on 07/17/18 18:29; Start 07/17/18 at 16:45; Stop 07/17/18 at 18:44; Status DC Sodium Chloride 1,000 ml @ 1,650 mls/hr Q37M IV Last administered on 07/17/18 18:24; Start 07/17/18 at 17:45; Stop 07/17/18 at 18:44; Status DC Sodium Chloride 1,000 ml @ 75 mls/hr [id number] IV ; Start 07/17/18 at 17:50; Stop 07/18/18 at 17:49; Status DC Levofloxacin/ Dextrose 150 ml @ 100 mls/hr Q48H IV Last administered on 17:52; Start 07/19/18 at 18:00; Stop 07/22/18 at 17:59 Acetaminophen (Tylenol) 650 mg PRN Q6HRS PRN PO Headaches, Temp > 101.5' Last administered on 07/19/18at 14:10; Start 07/17/18 at 18:00 Lorazepam (Ativan) 0.5 mg PRN Q6HRS PRN IV ANXIETY / AGITATION; Start 07/17/18 at 18:00 Ondansetron HCl (Zofran) 4 mg PRN Q6HRS PRN IV NAUSEA/VOMITING; Start 07/17/18 at 18:00 Info (Icu Electrolyte Protocol) 1 ea DAILY MC ; Start 07/18/18 at 09:00; Stop 04/27 at 13:55; Status DC Sodium Chloride (Normal Saline Flush) 3 ml QSHIFT PRN IV AFTER MEDS AND BLOOD DRAWS; Start 07/17/18 at 18:00 Ringer's Solution 1,000 ml @ 1,000 mls/hr Q1H IV Last administered on at 21:40; Start 07/17/18 at 17:48; Stop 07/17/18 at 18:47; Status DC Oxycodone/ Acetaminophen (Percocet 5/325) 1 tab PRN Q4HRS PRN PO MILD PAIN, 1ST CHOICE Last administered on 07/20/18at 00:33; Start 07/17/18 at 18:00 Morphine Sulfate (Morphine Sulfate) 2 mg PRN Q1HR PRN IV PAIN; Start 07/17/18 at 18:00 Lactulose (Lactulose) 20 gm PRN Q12HR PRN PO CONSTIPATION; Start 07/17/18 at 18: 00 Bisacodyl (Dulcolax Supp) 10 mg PRN DAILY PRN GA CONSTIPATION; Start 07/17/18 at 18:00 Amiodarone HCl (Cordarone) 400 mg DAILY PO Last administered on 07/20/18at 09:58 ; Start 07/18/18 at 09:00 Aspirin (Children'S Aspirin) 81 mg DAILY PO Last administered on 07/20/18 09: 58; Start 07/18/18 at 09:00 Cetirizine HCl (ZyrTEC) 10 mg DAILY PO Last administered on 07/20/18 09:58; Start 07/18/18 at 09:00 Cyanocobalamin (Vitamin B-12) 500 mcg DAILY PO Last administered on 07/20/18 09:56; Start 07/18/18 at 09:00 Ferrous Sulfate (Feosol) 325 mg BID PO Last administered on 07/20/18 09:58; Start 07/17/18 at 21:00 Furosemide (Lasix) 40 mg DAILY PO Last administered on 07/20/18 09:57; Start 07/18/18 at 09:00 Potassium Citrate (Urocit-K) 10 meq BIDWMEALS PO Last administered on 09:59; Start 07/17/18 at 21:00 Non-Formulary Medication (Alendronate Sodium ) 1 tab WEEKLY PO ; Start 07/24/18 at 09:00; Stop 07/24/18 at 09:00; Status DC Vitamin D (Vitamin D3) 3,000 unit DAILY PO Last administered on 07/20/18 09:59 ; Start 07/18/18 at 09:00 Citalopram Hydrobromide (CeleXA) 40 mg DAILY PO Last administered on 07/20/18 09:58; Start 07/18/18 at 09:00 Lactobacillus Rhamnosus (Culturelle) 2 cap DAILY PO Last administered on 10:00; Start 07/18/18 at 09:00 Multivitamins (Thera M Plus) 1 tab DAILY PO Last administered on 07/20/18 09: 58; Start 07/18/18 at 09:00 Fish Oil (Fish Oil) 1,000 mg DAILY PO Last administered on 07/20/18 09:58; Start 07/18/18 at 09:00 Pantoprazole Sodium (Protonix) 40 mg DAILYAC PO Last administered on 07/20/18 09:58; Start 07/18/18 at 07:30 Rivaroxaban (Xarelto) 15 mg DAILY PO Last administered on 07/20/18 09:59; Start 07/18/18 at 09:00 Atorvastatin Calcium (Lipitor) 80 mg QHS PO Last administered on 07/19/18 20: 46; Start 07/17/18 at 21:00 Spironolactone (Aldactone) 12.5 mg DAILY PO Last administered on 07/20/18 09: 59; Start 07/18/18 at 09:00 Venlafaxine HCl (Effexor Xr) 37.5 mg DAILY PO Last administered on 07/20/18 09 :58; Start 07/18/18 at 09:00 Vancomycin HCl 1 gm/Sodium Chloride 250 ml @ 250 mls/hr Q48H IV ; Start at 18:30; Stop 07/19/18 at 18:30; Status DC Vancomycin HCl (Vancomycin Trough Level) 1 each 1X ONCE MC ; Start 07/19/18 at 18:00; Stop 07/19/18 at 18:00; Status DC Info (Anti-Coagulation Monitoring By Pharmacy) 1 each PRN DAILY PRN MC SEE COMMENTS Last administered on 07/19/18at 13:58; Start 07/17/18 at 20:30 Vancomycin HCl 1 gm/Sodium Chloride 250 ml @ 250 mls/hr Q24H IV Last administered on 07/18/18at 18:00; Start 07/18/18 at 18:30; Stop 07/19/18 at 13:54; Status DC Throat Lozenges (Cepacol Sore Throat Lozenge) 1 liyah PRN Q2HRS PRN PO SORE THROAT Last administered on 07/18/18at 12:15; Start 07/18/18 at 12:15 Active Scripts Active Reported Vitamin D (Cholecalciferol (Vitamin D3)) 1,000 Unit Capsule 3,000 Unit PO DAILY Venlafaxine Hcl Er (Venlafaxine Hcl) 37.5 Mg Cap.er.24h 1 Cap PO DAILY Spironolactone 25 Mg Tablet 0.5 Tab PO DAILY Crestor (Rosuvastatin Calcium) 20 Mg Tablet 1 Tab PO DAILY Xarelto (Rivaroxaban) 20 Mg Tablet 20 Mg PO DAILY Probiotic (Lactobacillus Combo No.11) 1 Each Cap.sprink 2 Each PO DAILY Potassium Citrate 10 Meq Tablet.er 1 Tab PO BID Omeprazole 40 Mg Capsule.dr 1 Cap PO DAILY Hair, Skin & Nails (Multivitamin With Minerals) 1 Each Tablet 1 Each PO DAILY Furosemide 40 Mg Tablet 1 Tab PO DAILY Fish Oil 1,000 mg Softgel ([place]-3S/Dha/Epa/Fish Oil) 1 Each Capsule 1 Each PO DAILY Ferrous Sulfate 325 Mg Tablet 1 Tab PO BID Vitamin B-12 (Cyanocobalamin (Vitamin B-12)) 1,000 Mcg Tablet 500 Mcg PO DAILY Citalopram Hbr (Citalopram Hydrobromide) 40 Mg Tablet 1 Tab PO DAILY Cetirizine Hcl 10 Mg Tablet 1 Tab PO DAILY Aspirin 81 Mg Tab.chew 1 Tab PO DAILY Amiodarone Hcl 200 Mg Tablet 2 Tab PO DAILY Alendronate Sodium 70 Mg Tablet 1 Tab PO WEEKLY Vitals/I & O Vital Sign - Last 24 Hours 07/19/18 07/19/18 07/19/18 07/19/18 10:40 15:45 20:00 20:00 Temp 97.9 98.1 97.7 97.9 98.1 97.7 Pulse 77 79 67 Resp 17 18 18 B/P (MAP) 105/46 (65) 124/49 (74) 94/44 (61) Pulse Ox 95 97 97 O2 Delivery Room Air Room Air Room Air Room Air 07/19/18 07/19/18 07/20/18 07/20/18 20:46 23:59 00:33 01:33 Temp 97.8 97.8 Pulse 65 Resp 18 B/P (MAP) 133/55 (81) Pulse Ox 98 O2 Delivery Room Air Room Air BiPAP/CPAP BiPAP/CPAP O2 Flow Rate 2.0 07/20/18 07/20/18 07/20/18 07/20/18 02:46 04:00 07:05 09:58 Temp 98.6 97.9 98.6 97.9 Pulse 74 70 70 Resp 19 17 B/P (MAP) 134/54 (80) 128/56 (80) 128/56 Pulse Ox 98 95 O2 Delivery Room Air BiPAP/CPAP Room Air O2 Flow Rate 2.0 07/20/18 10:30 Temp 97.8 97.8 Pulse 79 Resp 18 B/P (MAP) 122/43 (69) Pulse Ox 94 O2 Delivery Room Air Intake and Output 07/19/18 07/19/18 07/20/18 15:01 23:01 07:01 Intake Total 500 ml 750 ml Output Total 1100 ml Balance 500 ml 750 ml -1100 ml IRMA MALONE MD Jul 20, 2018 10:40
[2018-07-20] MEDS ORDERED: LEVO500T59 PO (10:48)
--- NOTE | 2018-07-20 10:51 | DISCH ---
DISCHARGE WITH HOME HEALTH DISCHARGE INFORMATION: Discharge Date: Jul 20, 2018 Final Diagnosis: Community acquired pneumonia Condition on Discharge: Stable CODE STATUS: Code Status: Full HOME HEALTH: Face to Face: I certify this patient is under my care and that I, or a nurse practitioner or physician's speech language pathology assistant working with me, had a face to face encounter that meets the physician face to face encounter requirements with this patient on 07/20/18. Medical Complications: DJD, Pneumonia Physical Therapy For: Evalulation/Treatment Occupational Therapy For: Evaluation/Treatment Home Health Aide For: Self-care SOLE CONDITIONER For: Community Resources Pt Meets Homebound Status: Unsteady balance w/ amb,, Limited distance walking POST DISCHARGE ORDERS: Activity Instructions for Disc: No restrictions Weight Bearing Status after Di: No restrictions DIET AFTER DISCHARGE: Cardiac CHECKS AFTER DISCHARGE: Checks after discharge: Check blood press - daily, Check your Temp as needed, Weigh Yourself Daily FOLLOW-UP: Follow up with: Cardiology TREATMENT/EQUIPMENT ORDERS: Adaptive Equipment Issued: None CERTIFICATION STATEMENT: Certification Statement: Certification Statement: Based on the above finding, I certify that this patient is confined to the home and needs intermittent detention care, physical therapy and/or speech therapy, or continues to need occupational therapy.~ This patient is under my care, and I have initiated the establishment of the plan of care.~ This patient will be followed by myself or a community physician who will periodically review the plan of care. Home Meds Active Scripts Levofloxacin (LEVAQUIN) 500 Mg Tablet, 1 TAB PO DAILY for pneumonia for 3 Days, #3 TAB Prov:IRMA MALONE MD 07/20/18 Reported Medications Cholecalciferol (Vitamin D3) (VITAMIN D) 1,000 Unit Capsule, 3000 UNIT PO DAILY , CAP 07/17/18 Venlafaxine Hcl (VENLAFAXINE HCL ER) 37.5 Mg Cap.er.24h, 1 CAP PO DAILY, #90 CAP 3 Refills 07/17/18 Spironolactone (SPIRONOLACTONE) 25 Mg Tablet, 0.5 TAB PO DAILY, #90 TAB 1 Refill 07/17/18 Rosuvastatin Calcium (CRESTOR) 20 Mg Tablet, 1 TAB PO DAILY, #30 TAB 5 Refills 07/17/18 Rivaroxaban (XARELTO) 20 Mg Tablet, 20 MG PO DAILY, TAB 07/17/18 Lactobacillus Combo No.11 (PROBIOTIC) 1 Each Cap.sprink, 2 EACH PO DAILY, CAP 07/17/18 Potassium Citrate (POTASSIUM CITRATE) 10 Meq Tablet.er, 1 TAB PO BID, #60 TAB 11 Refills 07/17/18 Omeprazole (OMEPRAZOLE) 40 Mg Capsule.dr, 1 CAP PO DAILY, #30 CAP 3 Refills 07/17/18 Multivitamin With Minerals (HAIR, SKIN & NAILS) 1 Each Tablet, 1 EACH PO DAILY, TAB 07/17/18 Furosemide (FUROSEMIDE) 40 Mg Tablet, 1 TAB PO DAILY, #30 TAB 5 Refills 07/17/18 Pfeifer-3S/Dha/Epa/Fish Oil (Fish Oil 1,000 mg Softgel) 1 Each Capsule, 1 EACH PO DAILY, CAP 07/17/18 Ferrous Sulfate (FERROUS SULFATE) 325 Mg Tablet, 1 TAB PO BID, #60 TAB 3 Refills 07/17/18 Cyanocobalamin (Vitamin B-12) (VITAMIN B-12) 1,000 Mcg Tablet, 500 MCG PO DAILY , TAB 07/17/18 Citalopram Hydrobromide (CITALOPRAM HBR) 40 Mg Tablet, 1 TAB PO DAILY, #90 TAB 1 Refill 07/17/18 Cetirizine Hcl (CETIRIZINE HCL) 10 Mg Tablet, 1 TAB PO DAILY, #30 TAB 5 Refills 07/17/18 Aspirin (ASPIRIN) 81 Mg Tab.chew, 1 TAB PO DAILY, #30 TAB 3 Refills 07/17/18 Amiodarone Hcl (AMIODARONE HCL) 200 Mg Tablet, 2 TAB PO DAILY, #90 TAB 1 Refill 07/17/18 Alendronate Sodium (ALENDRONATE SODIUM) 70 Mg Tablet, 1 TAB PO WEEKLY, #4 TAB 3 Refills 07/17/18 IRMA MALONE MD Jul 20, 2018 10:51
[2018-07-20] MEDS: ANTI-COAG MONITOR BY PHARMACY. MC PRN (11:17)
--- NOTE | 2018-07-20 13:11 | NUR ---
JOSE spoke with pt's daughter and confirmed HH with [facility] home health. JOSE phoned and faxed HH orders to [facility] HH.
--- NOTE | 2018-07-20 13:15 | NUR ---
Patient discharged to home with home health. Discharge instructions, medications, and follow up appointments discussed with patient and daughter. Both verbalized understanding. Discharge papers given to patient. Prescription called into pharmacy. IV discontinued. Patient assisted out in wheelchair with staff at this time. Family here with patient.
--- NOTE | 2018-07-22 23:41 | PDOC3 ---
Discharge Summary Visit Information Date of Admission: Jul 17, 2018 Date of Discharge: Jul 20, 2018 Admitting Diagnosis: CAP, hypotension Final Diagnosis CAP, hypotension Brief Hospital Course Allergies Allergies Coded Allergies Type Severity Reaction Last Updated Verified Penicillins Allergy Intermediate rash 07/17/18 Yes Sulfa (Sulfonamide Antibiotics) Allergy Intermediate rash and fever 07/17/18 Yes Brief Hospital Course Ms Leon is an 83yo F admitted for treatment of Community acquired bacterial pneumonia. She has History of recent permanent pacemaker with Chronic atrial fibrillation on chronic anticoagulation and CAD s/p CABG in 2009, currently asymptomatic. This is complicated by CKD stage 3b. She initially had an Elevated lactic acid, which resolved Patient is much improved compared to yesterday. She is sitting in bed in no apparent distress, her respiratory status is normal but increased work of breathing noted no fever or chills reported. She was seen by pulm. and was d/c' d on oral antibiotics Discharge Information Condition at Discharge: Improved Follow Up: Weeks Disposition/Orders: D/C to Home w/ HH Scheduled Alendronate Sodium (Alendronate Sodium) 70 Mg Tablet, 1 TAB PO WEEKLY, #4 Ref 3 (Reported) Entered as Reported by: BABITA SAMUELS on 07/17/181729 Last Action: Converted on 07/17/181753 by NESTOR GRAHAM MD Amiodarone Hcl (Amiodarone Hcl) 200 Mg Tablet, 2 TAB PO DAILY, #90 Ref 1 ( Reported) Entered as Reported by: BABITA SAMUELS on 07/17/181729 Last Action: Continued on 07/17/181753 by NESTOR GRAHAM MD Aspirin (Aspirin) 81 Mg Tab.chew, 1 TAB PO DAILY, #30 Ref 3 (Reported) Entered as Reported by: BABITA SAMUELS on 07/17/181729 Last Action: Continued on 07/17/181753 by NESTOR GRAHAM MD Cetirizine Hcl (Cetirizine Hcl) 10 Mg Tablet, 1 TAB PO DAILY, #30 Ref 5 ( Reported) Entered as Reported by: BABITA SAMUELS on 07/17/181729 Last Action: Continued on 07/17/181753 by NESTOR GRAHAM MD Cholecalciferol (Vitamin D3) (Vitamin D) 1,000 Unit Capsule, 3,000 UNIT PO DAILY , (Reported) Entered as Reported by: BABITA SAMUELS on 07/17/181729 Last Action: Converted on 07/17/181753 by NESTOR GRAHAM MD Citalopram Hydrobromide (Citalopram Hbr) 40 Mg Tablet, 1 TAB PO DAILY, #90 Ref 1 (Reported) Entered as Reported by: BABITA SAMUELS on 07/17/181729 Last Action: Converted on 07/17/181753 by NESTOR GRAHAM MD Cyanocobalamin (Vitamin B-12) (Vitamin B-12) 1,000 Mcg Tablet, 500 MCG PO DAILY, (Reported) Entered as Reported by: BABITA SAMUELS on 07/17/181729 Last Action: Continued on 07/17/181753 by NESTOR GRAHAM MD Ferrous Sulfate (Ferrous Sulfate) 325 Mg Tablet, 1 TAB PO BID, #60 Ref 3 ( Reported) Entered as Reported by: BABITA SAMUELS on 07/17/181729 Last Action: Continued on 07/17/181753 by NESTOR GRAHAM MD Furosemide (Furosemide) 40 Mg Tablet, 1 TAB PO DAILY, #30 Ref 5 (Reported) Entered as Reported by: BABITA SAMUELS on 07/17/181729 Last Action: Continued on 07/17/181753 by NESTOR GRAHAM MD Lactobacillus Combo No.11 (Probiotic) 1 Each Cap.sprink, 2 EACH PO DAILY, ( Reported) Entered as Reported by: BABITA SAMUELS on 07/17/181729 Last Action: Converted on 07/17/181753 by NESTOR GRAHAM MD Levofloxacin (Levaquin) 500 Mg Tablet, 1 TAB PO DAILY for pneumonia for 3 Days, #3 Prescribed by: IRMA MALONE MD on 07/20/18 1048 Multivitamin With Minerals (Hair, Skin & Nails) 1 Each Tablet, 1 EACH PO DAILY, (Reported) Entered as Reported by: BABITA SAMUELS on 07/17/181729 Last Action: Converted on 07/17/181753 by NESTOR GRAHAM MD [place]-3S/Dha/Epa/Fish Oil (Fish Oil 1,000 mg Softgel) 1 Each Capsule, 1 EACH PO DAILY, (Reported) Entered as Reported by: BABITA SAMUELS on 07/17/181729 Last Action: Converted on 07/17/181753 by NESTOR GRAHAM MD Omeprazole (Omeprazole) 40 Mg Capsule.dr, 1 CAP PO DAILY, #30 Ref 3 (Reported) Entered as Reported by: BABITA SAMUELS on 07/17/181729 Last Action: Converted on 07/17/181753 by NESTOR GRAHAM MD Potassium Citrate (Potassium Citrate) 10 Meq Tablet.er, 1 TAB PO BID, #60 Ref 11 (Reported) Entered as Reported by: BABITA SAMUELS on 07/17/181729 Last Action: Continued on 07/17/181753 by NESTOR GRAHAM MD Rivaroxaban (Xarelto) 20 Mg Tablet, 20 MG PO DAILY, (Reported) Entered as Reported by: BABITA SAMUELS on 07/17/181729 Last Action: Converted on 07/17/181753 by NESTOR GRAHAM MD Rosuvastatin Calcium (Crestor) 20 Mg Tablet, 1 TAB PO DAILY, #30 Ref 5 (Reported ) Entered as Reported by: BABITA SAMUELS on 07/17/181729 Last Action: Converted on 07/17/181753 by NESTOR GRAHAM MD Spironolactone (Spironolactone) 25 Mg Tablet, 0.5 TAB PO DAILY, #90 Ref 1 ( Reported) Entered as Reported by: BABITA SAMUELS on 07/17/181729 Last Action: Converted on 07/17/181753 by NESTOR GRAHAM MD Venlafaxine Hcl (Venlafaxine Hcl Er) 37.5 Mg Cap.er.24h, 1 CAP PO DAILY, #90 Ref 3 (Reported) Entered as Reported by: BABITA SAMUELS on 07/17/181729 Last Action: Converted on 07/17/181753 by MD KIRA LUGO CHRISTOPHER S MD Jul 22, 2018 23:41
[2018-07-24] MEDS ORDERED: NON FORMULARY ITEM (Alendronate Sodium 1 TAB) PO SCH (09:00)
== END 2018-07-20 13:38 | disposition home health service (06) | DRG 871 ==
LOC: ER 15:43 → EDBD 15:43 → 1 WEST ICU 18:00 → MERGE 18:00 → UNMERGE 18:00 → 6 SOUTH 07-18 19:21
PROVIDERS: ADMIT Internal Medicine; ATTEND Internal Medicine
PROC: 5A09457 Assistance with Respiratory Ventilation, 24-96 Consecutive Hours, Continuous Positive Airway Pressure (ICD-10-PCS; principal; 2018-07-17)
DX: A41.9 Sepsis, unspecified organism (principal); J15.9 Unspecified bacterial pneumonia; I48.2 Chronic atrial fibrillation; I25.10 Atherosclerotic heart disease of native coronary artery without angina pectoris; I73.9 Peripheral vascular disease, unspecified; N18.9 Chronic kidney disease, unspecified; G47.33 Obstructive sleep apnea (adult) (pediatric); I50.9 Heart failure, unspecified; M19.90 Unspecified osteoarthritis, unspecified site; I95.9 Hypotension, unspecified; Z95.0 Presence of cardiac pacemaker; Z95.1 Presence of aortocoronary bypass graft; Z86.73 Personal history of transient ischemic attack (TIA), and cerebral infarction without residual deficits; Z79.01 Long term (current) use of anticoagulants; Z90.710 Acquired absence of both cervix and uterus
CPT/HCPCS: 36415; 71045; 80048; 80053; 81001; 82565; 83605; 83690; 83735; 83880; 84484; 85025; 85610; 87040; 87086; 87449; 87641; 93005; 96361; 96365; 96367; J1956; J3370; J7030; J7040; J7050; J7120; 97110; 97530; 97535; 99291-25